=== PATIENT | female | born 1940 | race Caucasian/White ===

== ENCOUNTER 2016-06-18 17:17 | Observation (INO) | payer MEDICARE, OTHER ==
--- NOTE | 2016-06-18 17:44 | ER Document Report ---
ED Cardiac - General Time seen by provider: 17:35 Mode of Arrival: Wheelchair Information source: Patient, Relative - spouse TRAVEL OUTSIDE OF THE [place] IN LAST 30 DAYS: No - HPI Patient complains to provider of: Chest pain, Shortness of breath <KENYON ALLEN - Last Filed: 06/18/16 22:40> <DESI MOSELEY - Last Filed: 06/18/16 23:59> - General Stated Complaint: CHEST PAIN Notes: Patient is a 75 year old female presenting to the emergency department for chest pain, hematuria, and shortness of breath. Patient was brought back from waiting room quickly due to EKG abnormalities. Patient states these symptoms have been intermittent over the past 2 days. Patient states that she has felt a pressure in her chest and epigastric area that does not radiate. Patient states her pain was present upon arrival but it went away after being in the ED. Patient states her pain was a 3/5. Patient also has some nausea but denies any vomiting. Patient is on Coumadin; patient and patient's spouse state they were told that the patient may have had a previous AL. Patient's Coumadin level was elevated when checked by her PCP recently. Patient has a history of hypercholesterolemia, hypertension, and diabetes mellitus. Patient's brother had an AL today. Patient has no known allergies. (KENYON ALLEN) - Related Data Allergies/Adverse Reactions: No Known Allergies Allergy (Verified 07/04/15 20:48) Home Medications: Current Home Medications Allopurinol [Zyloprim 300 mg Tablet] 300 mg PO DAILY 06/18/16 [History] Rosuvastatin Calcium [Crestor 5 mg Tablet] 5 mg PO Q48HP PRN 06/18/16 [History] Ubidecarenone [Co Q-10] 50 mg PO DAILY 06/18/16 [History] Past Medical History - General Information source: Patient, Relative - spouse - Social History Smoking Status: Never Smoker Family History: None - Past Medical History Cardiac Medical History: Reports: Hx Heart Attack, Hx Hypercholesterolemia, Hx Hypertension Endocrine Medical History: Reports: Hx Diabetes Mellitus Type 2 <KENYON ALLEN - Last Filed: 06/18/16 22:40> Review of Systems - Review of Systems Constitutional: No symptoms reported EENT: No symptoms reported Cardiovascular: See HPI, Chest pain Respiratory: See HPI, Short of breath Gastrointestinal: See HPI, Nausea. denies: Vomiting Genitourinary: No symptoms reported Female Genitourinary: No symptoms reported Musculoskeletal: No symptoms reported Skin: No symptoms reported Hematologic/Lymphatic: No symptoms reported Neurological/Psychological: No symptoms reported -: Yes All other systems reviewed and negative <KENYON ALLEN - Last Filed: 06/18/16 22:40> Physical Exam <KENYON ALLEN - Last Filed: 06/18/16 22:40> <DESI MOSELEY - Last Filed: 06/18/16 23:59> - Vital signs Vitals: Resp Pulse Ox 19 98 06/18/16 17:51 06/18/16 17:51 - Notes Notes: GENERAL: Well-appearing, well-nourished and in no acute distress HEAD: Atraumatic, normocephalic EYES: Pupils equal round and reactive to light, extraocular movements intact, sclera anicteric, no conjunctival injection or discharge ENT: Nares patent, oropharynx clear without exudates. Moist mucous membranes. NECK: Normal range of motion, supple without lymphadenopathy, No JVD, No Carotid Bruits LUNGS: Breath sounds clear to auscultation bilaterally and equal. No wheezes rales or rhonchi HEART: Normal S1S2, Regular rate and rhythm without murmurs, Equal peripheral pulses ABDOMEN: Soft, non-tender, no suprapubic tenderness, No pulsatile mass BACK: No CVA tenderness. EXTREMITIES: Normal range of motion, no calf tenderness, Negative Homans, no edema NEUROLOGICAL: Cranial nerves grossly intact. Normal speech, Normal sensory and motor exams. No gross cerebellar abnormalities PSYCH: Normal mood, normal affect SKIN: Warm, Dry, no cyanosis, no splinter hemorrhages, Cap refill < 2 sec ( KENYON ALLEN) Course - Laboratory Result Diagrams: 06/18/16 17:35 06/18/16 17:35 - Consults Dr. Meléndez Time consulted: 22:40 <KENYON ALLEN - Last Filed: 06/18/16 22:40> - Laboratory Result Diagrams: 06/18/16 17:35 06/18/16 17:35 - Diagnostic Test Radiology reviewed: Image reviewed, Reports reviewed - NAD - EKG Interpretation by Me Rate: Normal Rhythm: NSR - There is significant T-wave abnormalities particularly in the anterior lateral distribution that seem more prominent than 07/05/2015 <DESI MOSELEY - Last Filed: 06/18/16 23:59> - Re-evaluation Re-evalutation: 06/18/16 17:44 Patient's EKG has changed or is at least more prominent than her prior EKG from almost a year ago. She does not have any active chest discomfort or symptoms except the hematuria so we at this point will proceed cautiously that this likely is cardiac in nature. With her hematuria to the degree and elevated INR as reported we will hold off on aspirin until she develops further symptoms or further evidence of cardiac ischemia. 06/18/16 19:40 Patient developed some repeat chest pressure and an EKG was performed really without any significant change 06/18/16 19:45 Patient's symptoms completely resolved with the nitroglycerin so we'll apply some nitroglycerin paste. She has a repeat troponin pending with the first one 0.016. We are awaiting a urine specimen. 06/18/16 23:11 Patient remains without any chest discomfort. Her local data modeling specialist is Dr. Mclaughlin and PCP Dr. Hernandez. P 86/118/66, 96% (PIPERDESI RODAS) - Vital Signs Vital signs: Temp Pulse Resp BP Pulse Ox 20 118/66 96 06/18/16 23:01 06/18/16 23:01 06/18/16 23:01 - Laboratory Laboratory results interpreted by me: 06/18/16 06/18/16 06/18/16 17:35 17:35 17:35 RDW 15.3 H Plt Count 72 L PT 42.4 H Creatinine 0.51 L Glucose 226 H Calcium 10.3 H AST 64 H Creatine Kinase 146 H Urine Protein Urine Glucose (UA) Urine Blood 06/18/16 19:50 RDW Plt Count PT Creatinine Glucose Calcium AST Creatine Kinase Urine Protein 100 H Urine Glucose (UA) 150 H Urine Blood LARGE H - Consults Dr. Meléndez Reason for consultation: 06/18/16 22:[address] Meléndez for consult and recommendations for patient. He will call back. (KENYON ALLEN) Discharge <KENYON ALLEN - Last Filed: 06/18/16 22:40> - Discharge Admitting Provider: Hospitalist - Dr. Meléndez Unit Admitted: Telemetry <DESI MOSELEY - Last Filed: 06/18/16 23:59> - Discharge Clinical Impression: Chest pain, Coumadin coagulopathy, Hematuria Condition: Fair Disposition: ADMITTED INPATIENT Scribe Documentation - Scribe Written by Scrroger:: Kenyon Allen 06/18/16 20:20 acting as scribe for :: Piper <KENYON ALLEN - Last Filed: 06/18/16 22:40>
[2016-06-18 17:59] LABS: ABSOLUTE EOSINOPHILS # (AUTO) 0.1 10^3/uL (0.0-0.6); ABSOLUTE LYMPHOCYTES (AUTO) 1.2 10^3/uL (0.5-4.7); ABSOLUTE MONOCYTES (AUTO) 0.6 10^3/uL (0.1-1.4); ABSOLUTE NEUT (AUTO) 5.3 10^3/uL (1.7-8.2); BASOPHILS % (AUTO) 0.5 % (0-2); EOSINOPHILS % (AUTO) 1.8 % (0-6); HEMATOCRIT 40.9 % (36.0-47.0); HEMOGLOBIN 13.5 g/dL (12.0-15.5); HGB HCT DIFFERENCE -0.4; LYMPHOCYTES % (AUTO) 16.7 % (13-45); MEAN CORPUSCULAR HEMOGLOBIN 30.7 pg (27.0-33.4); MEAN CORPUSCULAR VOLUME 93 fl (80-97); MONOCYTES % (AUTO) 7.7 % (3-13); RED BLOOD COUNT 4.39 10^6/uL (3.72-5.28); RED CELL DISTRIBUTION WIDTH 15.3 % (11.5-14.0); SEGMENTED NEUTROPHILS % (AUTO) 73.3 % (42-78); WHITE BLOOD COUNT 7.2 10^3/uL (4.0-10.5)
[2016-06-18 18:04] LABS: PROTHROMBIN TIME 42.4 SEC (11.4-15.4)
[2016-06-18 18:17] LABS: ALANINE AMINOTRANSFERASE 52 U/L (9-52); ALBUMIN 4.1 g/dL (3.5-5.0); ALKALINE PHOSPHATASE 63 U/L (38-126); ANION GAP 13 (5-19); ASPARTATE AMINO TRANSFERASE 64 U/L (14-36); BILIRUBIN,DIRECT 0.4 mg/dL (0.0-0.4); BILIRUBIN,TOTAL 0.7 mg/dL (0.2-1.3); BLOOD UREA NITROGEN 9 mg/dL (7-20); CALCIUM 10.3 mg/dL (8.4-10.2); CARBON DIOXIDE 27 mmol/L (22-30); CHLORIDE 101 mmol/L (98-107); CREATINE KINASE 146 U/L (30-135); CREATININE RESULT 0.51 mg/dL (0.52-1.25); GLUCOSE 226 mg/dL (75-110); POTASSIUM 3.9 mmol/L (3.6-5.0); SODIUM 140.7 mmol/L (137-145); TOTAL PROTEIN 7.4 g/dL (6.3-8.2)
--- NOTE | 2016-06-18 18:24 | EKG REPORT ---
SEVERITY:- ABNORMAL ECG - SINUS RHYTHM ABNORMAL T, CONSIDER ISCHEMIA,CLAY LATERAL LEADS : Confirmed by: Jack Nieves MD 18-Jun-2016 18:23:46
[2016-06-18 18:27] LABS: CREATINE KINASE MB 3.7 ng/mL (<4.55); TROPONIN I 0.016 ng/mL
[2016-06-18] MEDS ORDERED: NITROGLYCERIN 0.4 MG/TAB 25 TAB/BOTTLE ONE (18:49)
[2016-06-18] MEDS ORDERED: NITROGLYCERIN 2% OINTMENT 1 GM PACKET TP ONE (19:46)
[2016-06-18 20:49] LABS: APPEARANCE,URINE CLOUDY; BILIRUBIN,URINE NEGATIVE (NEGATIVE); GLUCOSE, URINE 150 mg/dL (NEGATIVE); KETONES,URINE NEGATIVE (NEGATIVE); LEUKOCYTE ESTERASE,URINE NEGATIVE (NEGATIVE); NITRITE,URINE NEGATIVE (NEGATIVE); PROTEIN,URINE 100 mg/dL (NEGATIVE); URINE SPECIFIC GRAVITY 1.018; UROBILINOGEN,URINE NEGATIVE mg/dL (<2.0)
[2016-06-19] MEDS ORDERED: ACETAMINOPHEN 325 MG TABLET PO PRN (00:02)
[2016-06-19] MEDS ORDERED: GLUCAGON,HUMAN RECOMB 1 MG INJ IM PRN (00:03)
[2016-06-19] MEDS ORDERED: DEXTROSE 40% GEL 15 GM TUBE PO PRN ×2 (00:03)
[2016-06-19] MEDS ORDERED: DEXTROSE 50%-WATER 25 GM/50 ML DISP.SYRIN IV PRN ×2 (00:03)
[2016-06-19 05:09] LABS: CHOLESTEROL 122.02 mg/dL (0-200); Direct HDL 34 mg/dL (>40); TRIGLYCERIDES 158 mg/dL (<150)
[2016-06-19 05:20] LABS: DIRECT LDL 55 mg/dL (<100)
[2016-06-19 05:24] LABS: VLDL CHOLESTEROL 31.6 mg/dL (10-31)
--- NOTE | 2016-06-19 05:36 | PDOC H&P ---
History of Present Illness Admission Date/PCP: 06/19/16 01:09 PCP Mary low Patient complains of: chest pain, hematuria History of Present Illness: EUNICE OAKES is a 75 year old occasion female with underlying type II diabetes mellitus, hypertension, hyperlipidemia, gouty arthritis, and suspected previous AK by nuclear stress study results approximately a month ago, who presents to the emergency room for evaluation of above complaints. Describes a 2 day history of intermittent lower substernal/epigastric pressure- like discomfort without radiation. Nothing in particular makes it worse. Has had prior such discomfort. Nausea but no vomiting. Mild shortness of breath. Nuclear stress study results as noted above. Patient states she was started on Coumadin 2 weeks ago, for uncertain reason. By her account, no history of pulmonary embolus or DVT, although she has undergone previous left lower extremity arterial stent implant. States her data transcriber started the Coumadin. Wanted to proceed with Eliquis, but the cost was simply too great. No recent long trip with prolonged inactivity, or unusual lower extremity swelling or tenderness. During the same 2 day time span noted above, she's developed hematuria. Stopped her Coumadin upon instruction from her data transcriber. Currently resting quietly, chest pain-free. Per nursing staff, patient continues to have hematuria. Patient has been discussed with emergency room physician who evaluated the patient. . Denies any known history of low platelets or elevated liver functions. Denies any underlying biliary disease. Laboratory results are listed in [facility] and are reviewed. X-ray summary results are listed below, with full report(s) reviewed. . EKG's reviewed. And compared to a prior tracing from July 04 of last year. Social history/personal habits: . 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 No use of alcohol tobacco or illicit drugs. Allergies/adverse reactions NKDA. Home medications Home medications initially autopopulated into [facility] may not accurately reflect patient's true medications, dosages, and/or frequencies. Unfortunately, patient uncertain of dosages/frequencies. REVIEW OF SYSTEMS: Constitutional: No fever or chills. Eyes: Wears glasses. ENT: No swallowing problems or complaints. No hearing problems or complaints. Pulmonary: See history and present illness. Cardiovascular: See history and present illness. Gastrointestinal: See history and present illness. Skin: No current complaints, including rashes. Hematologic: Easy bruising. Neurologic: No current complaints, including numbness or tingling. Musculoskeletal: Joint pain from arthritis. Psychiatric: No current complaints, including anxiety or depression. Endocrine: No current complaints, including polyuria. Genitourinary: See history and present illness. PHYSICAL EXAMINATION: 5 feet 10 inches tall. 70.3 kg. BMI 22 kg/m. Temperature is not recorded on the chart; skin feels normothermic. Pulse 77 and regular. Blood pressure 131/ 63. Respirations are 17 and unlabored. 96% saturation on room air. Skin is warm and dry. No grossly obvious evidence of rash in areas of skin examined. No subcutaneous nodules palpated. ENT: Hearing grossly normal to normal conversation. Tongue midline on protrusion pink and slightly tacky. Eyes: No scleral icterus. Pupils equal and reactive to light at 4 mm. [place] conjunctivae. Neck is supple and nontender to gentle active range of motion and palpation. Midline trachea. No palpable thyroid nodule mass enlargement or tenderness. Lymphatic: No palpable cervical or clavicular nodes. Neck and lymphatic exams limited by patient body habitus. Psychiatric: Reasonable insight into acute and chronic medical issues. Oriented to time location and why here. Lungs: Auscultation reveals clear and equal breath sounds bilaterally. No use of accessory respiratory muscles. Cardiovascular: Heart regular rate and rhythm, without gallop murmur or rub. No carotid or abdominal aortic bruits. No ankle or pedal edema. Faintly palpable dorsalis pedis pulses. Abdomen: soft, slightly, distended nontender with positive bowel sounds. Unable to adequately evaluate abdomen for masses or organomegaly due to distention. Compression of neither her epigastrium nor sternum reproduces her previously noted chest discomfort. Extremities: Feet are warm and dry. No calf tenderness to compression. No grossly obvious visual evidence of calf swelling. Gentle manipulation of lower extremities fails to reveal any obvious evidence of injury or instability to knees hips or ankles. Neurologic: Moves upper extremities grossly normally. Patellar reflexes absent. Absent Babinski. Light touch is intact at feet. Dorsiflexion and plantarflexion of feet 5 / 5 and symmetric. Past Medical History Cardiac Medical History: Reports: Myocardial Infarction, Hyperlipidema, Hypertension Denies: Congestive Heart Failure, DVT, Pulmonary Embolism Pulmonary Medical History: Denies: Asthma, Chronic Obstructive Pulmonary Disease (COPD) EENT Medical History: Reports: Eyes - Glasses Denies: Ears, Throat Neurological Medical History: Denies: Hemorrhagic CVA, Ischemic CVA, Seizures Endocrine Medical History: Reports: Diabetes Mellitus Type 2 Denies: Diabetes Mellitus Type 1, Hyperthyroidism, Hypothyroidism Renal/ Medical History: Reports: None Malignancy Medical History: Reports: Skin Cancer GI Medical History: Denies: Cirrhosis, Gastroesophageal Reflux Disease, Hepatitis, Peptic Ulcer Disease Musculoskeltal Medical History: Reports: Arthritis, Gout Psychiatric Medical History: Denies: Alcohol Dependency, Depression, General Anxiety Disorder, Substance Abuse, Tobacco Dependency Hematology: Reports: Other - Easy bruising Infectious Medical History: Denies: Hepatitis B, Hepatitis C Past Surgical History Past Surgical History: Reports: Orthopedic Surgery - Foot surgery, Vascular Surgery - Left lower extremity arterial stent implant. Social History Information Source: Patient, Emergency Med Personnel, [facility] Records Lives with: Spouse/Significant other Smoking Status: Never Smoker Frequency of Alcohol Use: None Hx Recreational Drug Use: No Drugs: None Hx Prescription Drug Abuse: No - Advance Directive Resuscitation Status: Full Code Surrogate healthcare decision maker:: Family History Family History: None, CVA Parental Family History Reviewed: Yes Children Family History Reviewed: Yes Sibling(s) Family History Reviewed.: Yes Medication/Allergy Home Medications: RX: Allopurinol [Zyloprim 300 mg Tablet] 300 mg PO DAILY 06/19/16 RX: Glimepiride [Amaryl] 2 mg PO BID 06/19/16 RX: Metformin HCl [Glucophage] 1,000 mg PO BID 06/19/16 RX: Metoprolol Tartrate [Lopressor 50 mg Tablet] 50 mg PO DAILY 06/19/16 RX: Rosuvastatin Calcium [Crestor 5 mg Tablet] 5 mg PO Q2D 06/19/16 RX: Allopurinol [Zyloprim 300 mg Tablet] 300 mg PO DAILY tablet 06/20/16 Allergies/Adverse Reactions: No Known Allergies Allergy (Verified 07/04/15 20:48) Physical Exam Vital Signs: Temp Pulse Resp BP Pulse Ox 75 19 121/61 95 06/19/16 03:45 06/19/16 03:01 06/19/16 03:01 06/19/16 03:01 Results Impressions: Chest X-Ray 06/18/16 17:43 IMPRESSION: NO ACUTE RADIOGRAPHIC FINDING IN THE CHEST. Assessment & Plan - Diagnosis (1) Chest pain Qualifiers: Chest pain type: unspecified Qualified Code(s): R07.9 - Chest pain, unspecified Is this a current diagnosis for this admission?: YesPlan: Patient will be placed in observation bed under chest pain protocol. Patient understands to notify staff should chest pain recur. Serial cardiac enzymes. Repeat EKG. lipid panel. I have strongly encouraged patient not to get out of bed without notifying staff , to avoid a fall with injury. Knee high SCDs for DVT prophylaxis. With supratherapeutic INR, no need for Lovenox or heparin. Impression and plans were discussed with patient, who concurs. Time spent in evaluation and management of patient: 64 minutes. (2) Hematuria Is this a current diagnosis for this admission?: YesPlan: Should clear with time as INR normalizes. (3) Supratherapeutic INR Is this a current diagnosis for this admission?: YesPlan: Coumadin obviously placed on hold. Repeat PT/INR. (4) Elevated LFTs Is this a current diagnosis for this admission?: YesPlan: Uncertain etiology. Repeat hepatic profile. (5) Thrombocytopenia Is this a current diagnosis for this admission?: YesPlan: Uncertain etiology. Repeat CBC. (6) CAD (coronary artery disease) Qualifiers: Coronary Disease-Associated Artery/Lesion type: [place]arrow artery [place] vs. transplanted heart: barrow heart Associated angina: without angina Qualified Code(s): I25.10 - Atherosclerotic heart disease of [place] coronary artery without angina pectoris Is this a current diagnosis for this admission?: Yes (7) Diabetes mellitus type 2 in obese Is this a current diagnosis for this admission?: YesPlan: Diabetic cardiac diet.Resume home medications as appropriate once these have been determined and reviewed. (8) HLD (hyperlipidemia) Qualifiers: Hyperlipidemia type: unspecified Qualified Code(s): E78.5 - Hyperlipidemia, unspecified Is this a current diagnosis for this admission?: YesPlan: Resume home medications as appropriate once these have been determined and reviewed. (9) HTN (hypertension) Qualifiers: Hypertension type: essential hypertension Qualified Code(s): I10 - Essential (primary) hypertension Is this a current diagnosis for this admission?: YesPlan: Resume home medications as appropriate once these have been determined and reviewed.
[2016-06-19] MEDS ORDERED: PHYTONADIONE 5 MG TABLET PO ONE (09:10)
[2016-06-19] MEDS ORDERED: ASPIRIN 81 MG TABLET, ENT COATED PO SCH (10:00)
[2016-06-19 10:22] LABS: HEMATOCRIT 37.6 % (36.0-47.0); HEMOGLOBIN 12.6 g/dL (12.0-15.5); HGB HCT DIFFERENCE 0.2; MEAN CORPUSCULAR HEMOGLOBIN 30.5 pg (27.0-33.4); MEAN CORPUSCULAR HGB CONC 33.4 g/dL (32.0-36.0); MEAN CORPUSCULAR VOLUME 92 fl (80-97); RED BLOOD COUNT 4.11 10^6/uL (3.72-5.28); RED CELL DISTRIBUTION WIDTH 14.9 % (11.5-14.0); WHITE BLOOD COUNT 5.7 10^3/uL (4.0-10.5)
--- NOTE | 2016-06-19 10:24 | EKG REPORT ---
SEVERITY:- ABNORMAL ECG - SINUS RHYTHM PROBABLE LVH WITH SECONDARY REPOL ABNRM CONSIDER EVOLUTIONARY CHANGES ANTERIOR MD, CLINICAL CORRELATION NEEDED. : Confirmed by: Jack Nieves MD 19-Jun-2016 10:23:04
[2016-06-19 10:28] LABS: PROTHROMBIN TIME 30.5 SEC (11.4-15.4)
[2016-06-19 10:40] LABS: ALANINE AMINOTRANSFERASE 44 U/L (9-52); ALBUMIN 3.7 g/dL (3.5-5.0); ALKALINE PHOSPHATASE 58 U/L (38-126); ASPARTATE AMINO TRANSFERASE 45 U/L (14-36); BILIRUBIN,DIRECT 0.4 mg/dL (0.0-0.4); BILIRUBIN,TOTAL 1.2 mg/dL (0.2-1.3); TOTAL PROTEIN 6.5 g/dL (6.3-8.2)
--- NOTE | 2016-06-19 11:43 | PDOC CONSULTATION ---
Consultation Consult Date: 06/19/16 Attending physician:: MING CISNEROS Consult reason:: Chest pain and urinary bleed History of Present Illness Admission Date/PCP: 06/19/16 05:07 Patient complains of: Chest pain History of Present Illness: EUNICE OAKES is a 75 year old occasion female with underlying type II diabetes mellitus, hypertension, hyperlipidemia, gouty arthritis, and suspected previous CT by nuclear stress study results approximately a month ago, who presents to the emergency room for evaluation of above complaints. Describes a 2 day history of intermittent lower substernal/epigastric pressure- like discomfort without radiation. Nothing in particular makes it worse. Has had prior such discomfort. Nausea but no vomiting. Mild shortness of breath. Nuclear stress study results as noted above. Patient states she was started on Coumadin 2 weeks ago, for uncertain reason. By her account, no history of pulmonary embolus or DVT, although she has undergone previous left lower extremity arterial stent implant. States her global marketing operations manager started the Coumadin. Wanted to proceed with Eliquis, but the cost was simply too great. No recent long trip with prolonged inactivity, or unusual lower extremity swelling or tenderness. During the same 2 day time spent, she's developed hematuria. Stopped her Coumadin upon instruction from her global marketing operations manager. Patient denies any exertional component to the chest pain. She is however noted to have abnormal EKG with T-wave inversions. Patient describes that she had a pharmacologic nuclear stress test. She claims that based on stress test results she was placed on Coumadin. I believe that she may have pharmacologic stress-induced atrial fibrillation, atrial fibrillation can be a complication of Lexiscan injection. Patient subsequently used a equipment monitor phototypesetting for approximately 2 weeks and no atrial fibrillation was noted. Patient denied prior heart catheterization, prior strokes or mini strokes but claims unsteadiness of gait at night. Patient describes history of stent placement in her lower extremity. Patient denied history of ulcers or esophageal or gastric bleed. Patient does describe history of snoring which was confirmed by her . She describes difficulty falling asleep, staying asleep, daytime fatigue and sleepiness. Past Medical History Cardiac Medical History: Reports: Myocardial Infarction, Hyperlipidema, Hypertension Denies: Congestive Heart Failure, DVT, Pulmonary Embolism Pulmonary Medical History: Denies: Asthma, Chronic Obstructive Pulmonary Disease (COPD) EENT Medical History: Reports: Eyes - Glasses, Other - Easy bruising Denies: Ears, Throat Neurological Medical History: Denies: Hemorrhagic CVA, Ischemic CVA, Seizures Endocrine Medical History: Reports: Diabetes Mellitus Type 2 Denies: Diabetes Mellitus Type 1, Hyperthyroidism, Hypothyroidism Renal/ Medical History: Reports: None Malignancy Medical History: Reports: Skin Cancer GI Medical History: Denies: Cirrhosis, Gastroesophageal Reflux Disease, Hepatitis, Peptic Ulcer Disease Musculoskeltal Medical History: Reports: Arthritis, Gout Psychiatric Medical History: Denies: Alcohol Dependency, Depression, General Anxiety Disorder, Substance Abuse, Tobacco Dependency Hematology: Reports: Other - Easy bruising Infectious Medical History: Denies: Hepatitis B, Hepatitis C Past Surgical History Past Surgical History: Reports: Orthopedic Surgery - Foot surgery, Vascular Surgery - Left lower extremity arterial stent implant. Social History Information Source: Patient Lives with: Spouse/Significant other Smoking Status: Never Smoker Frequency of Alcohol Use: None Hx Recreational Drug Use: No Drugs: None Hx Prescription Drug Abuse: No - Advance Directive Resuscitation Status: Full Code Surrogate healthcare decision maker:: Patient's insists surrogate decision-maker Family History Family History: None, CVA Parental Family History Reviewed: Yes Children Family History Reviewed: Yes Sibling(s) Family History Reviewed.: Yes - Negative for premature coronary artery disease or sudden cardiac in the family amongst first degree relatives. Medication/Allergy Home Medications: Aspirin [Aspirin 81 mg Chewable Tablet] 1 tab PO DAILY 07/04/15 Enalapril Maleate 1 tab PO BID 07/04/15 Glimepiride [Amaryl] 1 tab PO BID 07/04/15 Allopurinol [Zyloprim 300 mg Tablet] 300 mg PO DAILY 06/18/16 Rosuvastatin Calcium [Crestor 5 mg Tablet] 2.5 mg PO DAILY 06/18/16 Metformin HCl [Metformin HCl] 1 tab PO BID 06/19/16 Metoprolol Tartrate [Lopressor 50 mg Tablet] 50 mg PO Q12H 06/19/16 Allergies/Adverse Reactions: No Known Allergies Allergy (Verified 07/04/15 20:48) Review of Systems Review of Systems: Please see history of present illness and past medical history as wall. Constitutional: No fever or chills reported. Head : No recent chronic headaches, recent head injury. Eyes: No recent eye pain, diplopia, redness, discharge, acute visual changes. Ears: No recent chronic ear pain, acute hearing loss, ear discharge. Oral cavity: No recent ulcerations, bleeding, oral cavity discomfort. Neck: No recent acute neck pain reported. Hematologic: No recent easy bruising or bleeding or hematologic malignancy reported. Lymphatic: No recent lymphatic malignancy, chronic lymphadenopathy reported yet Cardiovascular system review: See history of present illness. Respiratory system review: No recent chronic cough, hemoptysis, blood clots in the lungs reported. Mild Shortness of breath on exertion Gastrointestinal system review: Negative for any recent acute or chronic abdominal pain, hematemesis, melena, recent change in bowel habits. History of intermittent epigastric discomfort. Genitourinary system review: History of recent hematuria but no flank pain, UTI etc. reported. Skin system review: Negative for any recent abnormal bruising, no rash, no pruritus reported. Neurologic: No prior history of strokes, mini strokes, seizure disorder. Psychologic: No history of major psychosis or major depression reported. Musculoskeletal: Minor aches and pains reported. No acute joint swelling reported. Endocrine: No recent polyuria, polydipsia, recent heat or cold intolerance. Physical Exam Vital Signs: Temp Pulse Resp BP Pulse Ox 97.6 F 76 17 117/86 H 99 06/19/16 08:00 06/19/16 08:00 06/19/16 08:00 06/19/16 08:00 06/19/16 08:00 Intake & Output 06/18/16 06/19/16 06/20/16 06:59 06:59 06:59 Intake Total 0 Balance 0 Weight 70.3 kg Exam: GENERAL: well-nourished and in no acute distress. Alert and oriented x3 HEAD: Atraumatic, normocephalic. EYES: Pupils equal round and reactive to light, extraocular movements intact, sclera anicteric, conjunctiva are normal. ENT: TMs normal, nares patent, oropharynx clear without exudates. Moist mucous membranes. No oral ulcerations or bleeding gums noted NECK: supple without lymphadenopathy. Trachea is central. No cervical or axillary lymphadenopathy noted. Carotids are 2+, JVD WNL LUNGS: Respiration seems nonlabored, no significant accessory muscle action noted. Breath sounds clear to auscultation bilaterally and equal noted. No wheezes rales or rhonchi noted. No significant dullness noted on percussion. CHEST: Palpation of the chest wall shows no significant chest wall tenderness. No other significant abnormalities noted. HEART: [employer] DIRECTOR OF EVENT MANAGEMENT, No PSH, 1/6 FRANSISCA aortic area, 1/6 tesfaye systolic murmur mitral area, no rubs, no gallops. ABDOMEN: Soft, no significant tenderness appreciated, normoactive bowel sounds. No guarding, no rebound. No rigidity noted . No masses appreciated. EXTREMITIES: Pedal pulses are 1-2+, no calf tenderness noted. No clubbing or cyanosis.trace to 1+ pedal edema noted NEUROLOGICAL: Focused neurological exam showed no significant neurologic deficit. Normal speech, no focal weakness appreciated. PSYCH: Normal mood, normal affect. Judgment and insight within normal limits. SKIN: No significant ecchymosis, rash, ulcerations or signs of pruritus noted. MUSCULOSKELETAL EXAM: No significant joint swelling noted. Results Laboratory Results: 06/19/16 10:09 06/19/16 06/19/16 10:09 10:09 WBC 5.7 RBC 4.11 Hgb 12.6 Hct 37.6 MCV 92 MCH 30.5 MCHC 33.4 RDW 14.9 H Plt Count 61 L Total Bilirubin 1.2 AST 45 H ALT 44 Alkaline Phosphatase 58 Total Protein 6.5 Albumin 3.7 06/19/16 10:09 Troponin I 0.017 EKG Comments: Sinus rhythm, T wave inversion noted in lateral chest leads consistent with ischemia Impressions: Chest X-Ray 06/18/16 17:43 IMPRESSION: NO ACUTE RADIOGRAPHIC FINDING IN THE CHEST. Abdomen Ultrasound 06/19/16 00:00 IMPRESSION: Cholelithiasis. Positive sonographic Cordoba's sign. Renal Ultrasound 06/19/16 00:00 IMPRESSION: NORMAL RENAL AND BLADDER ULTRASOUND. Assessment & Plan - Diagnosis (1) Chest pain Qualifiers: Chest pain type: unspecified Qualified Code(s): R07.9 - Chest pain, unspecified Is this a current diagnosis for this admission?: Yes (2) Hematuria Is this a current diagnosis for this admission?: Yes (3) Supratherapeutic INR Is this a current diagnosis for this admission?: Yes (4) CAD (coronary artery disease) Qualifiers: Coronary Disease-Associated Artery/Lesion type: false pass artery [place] vs. transplanted heart: false pass heart Associated angina: without angina Qualified Code(s): I25.10 - Atherosclerotic heart disease of false pass coronary artery without angina pectoris Is this a current diagnosis for this admission?: Yes (5) Diabetes mellitus type 2 in obese Is this a current diagnosis for this admission?: Yes (6) HLD (hyperlipidemia) Qualifiers: Hyperlipidemia type: unspecified Qualified Code(s): E78.5 - Hyperlipidemia, unspecified Is this a current diagnosis for this admission?: Yes (7) HTN (hypertension) Qualifiers: Hypertension type: essential hypertension Qualified Code(s): I10 - Essential (primary) hypertension Is this a current diagnosis for this admission?: Yes - Notes Notes: Chest pain: Currently chest pain-free. Patient does have some EKG changes but need to compare with prior EKGs. At this point will optimize therapy for underlying CAD. Recommend starting Plavix once bleeding stops. Continue aspirin. Have started patient on beta refugio. Once blood pressure improves will recommend adding olga inhibitor or ARB. Patient placed on statins. Hematuria: Possible underlying UTI. Recommend antibiotic therapy. Supratherapeutic INR: Currently reversed. Exact reason for starting Coumadin is not clear but could have been paroxysmal A. fib. Whether this was precipitated by stress test is not clear or whether this was spontaneously observed. We will need to review records and reassess anticoagulation in this patient. Coronary artery disease: We will recommend Ranexa therapy. Will restart this while patient is in the hospital. Diabetes:Diabetes: Recommend good control of blood sugar. However should avoid any hypoglycemia. Patient being expertly managed by primary care MAscencion. Hyperlipidemia: LDL goal is less than 70. Recommend statin therapy at least intermediate or high dose, of high potency status. Periodic lipid panel and liver panel is indicated. Patient to report any significant muscle discomfort or other side effects. Hypertension: Reasonably well controlled. Blood pressure goal in this patient is 135/85 or less. Sleep disorder: Patient describes history of snoring, marked increased fatigue and sleepiness during the day. Discussed that she might consider a sleep study as an outpatient. This is especially in view of atrial fibrillation, paroxysmal. - Time Time Spent: 30 to 50 Minutes - CODE STATUS was discussed, patient remains full code. Surrogate decision-maker unchanged. Multiple medical problems were addressed.More than 50% of the time spent coordinating care, discussing management plans with involved caregivers. Management plans discussed with involved personnels. Medical decision making was of moderate complexity. Medications reviewed and adjusted accordingly: Yes
[2016-06-19] MEDS: ALLOPURINOL 300 MG TABLET PO SCH (11:57)
[2016-06-19] MEDS ORDERED: METOPROLOL SUCCINATE 25 MG TAB.SR.24H PO SCH (12:00)
[2016-06-19] MEDS: INSULIN LISPRO 100 UNIT/ML 3 ML VIAL SUBCUT PRN ×3 (12:35→22:06)
[2016-06-19] MEDS: LANSOPRAZOLE 30 MG TAB.RAP.DR PO SCH (16:50)
--- NOTE | 2016-06-19 17:39 | PDOC PROGRESS REPORT ---
Subjective Progress Note for:: 06/19/16 Subjective:: Reason for visit: Follow-up hematuria, cytopenia, iatrogenic coagulopathy, chest pain Hospital course: Per H&P "EUNICE OAKES is a 75 year old occasion female with underlying type II diabetes mellitus, hypertension, hyperlipidemia, gouty arthritis, and suspected previous RI by nuclear stress study results approximately a month ago, who presents to the emergency room for evaluation of above complaints. Describes a 2 day history of intermittent lower substernal/ epigastric pressure-like discomfort without radiation. Nothing in particular makes it worse. Has had prior such discomfort. Nausea but no vomiting. Mild shortness of breath. Nuclear stress study results as noted above. Patient states she was started on Coumadin 2 weeks ago, for uncertain reason. By her account, no history of pulmonary embolus or DVT (or afib or other dysrhythmia), although she has undergone previous left lower extremity arterial stent implant. States her automobile contract clerk started the Coumadin. Wanted to proceed with Eliquis, but the cost was simply too great. No recent long trip with prolonged inactivity, or unusual lower extremity swelling or tenderness. During the same 2 day time spent, she's developed hematuria. Stopped her Coumadin upon instruction from her automobile contract clerk. Currently resting quietly, chest pain-free. Per nursing staff, patient continues to have hematuria." She has no recollection of being told previously that her liver function studies were slightly abnormal or that her platelets were slightly low. She denies alcohol use and any dose or form. She does report that her brother has an unknown type of hepatitis that he was told his prescription induced. He is currently hospitalized in [place] with an acute RI. EKG in the ED shows T- wave inversions in lead 1, aVL, V3 through 6 and when compared to prior EKG looks slightly more pronounced, Otherwise no significant changes. I ordered a renal ultrasound that shows no anatomic abnormality of the system including no bladder mass. Right upper quadrant ultrasound likewise shows normal liver echogenicity and texture but did show gallbladder sludge and stones without pericholecystic fluid or common bile duct dilatation however she had pain on palpation in the right upper quadrant consistent with a positive Cordoba sign. Subjective: Prior to the ultrasound she reported resolution of her chest pain. She also notes her urine has cleared, she seen no more blood or clots in her urine. ROS: per HPI plus a total of 10 systems reviewed, pertinent positives and negatives noted above, remaining systems negative. Physical Exam Vital Signs: Temp Pulse Resp BP Pulse Ox 97.3 F 70 19 125/72 100 06/19/16 16:00 06/19/16 16:00 06/19/16 16:00 06/19/16 16:00 06/19/16 16:00 Intake & Output 06/18/16 06/19/16 06/20/16 06:59 06:59 06:59 Intake Total 0 757 Output Total 750 Balance 0 7 Weight 70.3 kg EXAM GENERAL: NAD; well developed, well nourished; no obese; alert and oriented to person, place, time, situation HEENT: normocephalic, atraumatic; no conjunctival injection, no scleral icterus ; oral mucosa moist; RESPIRATORY: no accessory muscle use, no increased WOB, good air entry bilaterally; no wheezes, rales, rhonchi; no inspiratory crackles CARDIO: no JVD; RRR; no systolic murmur; no tachycardia GI: soft; nondistended; normal bowel sounds; no hepato spleno megaly; no rebound, rigidity, guarding; mild upper abdominal tenderness on deep palpation VASCULAR: no carotid bruit; no abdominal bruit; no pallor; 2+ radial, DP pulse ; normal capillary refill EXTREMITIES: no calf tender; no palpable cords in calf; no clubbing, cyanosis , pedal edema PSYCH: normal affect, normal mood SKIN: warm; moist; no petechiae; no telengectasias; no jaundice; no rash Results Laboratory Results: 06/19/16 10:09 06/19/16 06/19/16 10:09 10:09 WBC 5.7 RBC 4.11 Hgb 12.6 Hct 37.6 MCV 92 MCH 30.5 MCHC 33.4 RDW 14.9 H Plt Count 61 L Total Bilirubin 1.2 AST 45 H ALT 44 Alkaline Phosphatase 58 Total Protein 6.5 Albumin 3.7 06/19/16 10:09 Troponin I 0.017 Impressions: Chest X-Ray 06/18/16 17:43 IMPRESSION: NO ACUTE RADIOGRAPHIC FINDING IN THE CHEST. Abdomen Ultrasound 06/19/16 00:00 IMPRESSION: Cholelithiasis. Positive sonographic Cordoba's sign. Renal Ultrasound 06/19/16 00:00 IMPRESSION: NORMAL RENAL AND BLADDER ULTRASOUND. Assessment & Plan - Diagnosis (1) Chest pain Qualifiers: Chest pain type: unspecified Qualified Code(s): R07.9 - Chest pain, unspecified Is this a current diagnosis for this admission?: YesPlan: Unclear etiology. The patient reports an abnormal stress test but was told that there was "no blockage in her coronary arteries" but she cannot remember the specific abnormality found. He does not understand why she was started on Coumadin therapy but tells me it was not because of atrial fibrillation or cardiac arrhythmia. Interestingly, ultrasound imaging revealed a possible gallbladder source. She does not have a leukocytosis or fever and only has mild nausea with no vomiting , her LFTs are only marginally elevated and even less so than previous and no elevation of her bilirubin. Nevertheless this may explain her chest pain as well as any other cause. ck HIDA in the morning and consult surgery if abnormal. appreciate cardiology's input; we are really at a disadvantage until we can get her stress test results. her TpI is trending down and never outside the normal range. (2) Hematuria Is this a current diagnosis for this admission?: YesPlan: seems to have subsided. I gave VitK and INR is trending down though not quite normal as yet. continue to monitorl (3) Supratherapeutic INR Is this a current diagnosis for this admission?: Yes (4) Elevated LFTs Is this a current diagnosis for this admission?: YesPlan: unclear etiology; see above discussion (5) Thrombocytopenia Is this a current diagnosis for this admission?: YesPlan: unclear etiology. continue to trend and hold antiplt Tx at this time. (6) Diabetes mellitus type 2 in obese Is this a current diagnosis for this admission?: Yes (7) HLD (hyperlipidemia) Qualifiers: Hyperlipidemia type: unspecified Qualified Code(s): E78.5 - Hyperlipidemia, unspecified Is this a current diagnosis for this admission?: YesPlan: predominantly triglycerides but hold statin and fibrate Tx until we can sort out her liver abnl's. (8) HTN (hypertension) Qualifiers: Hypertension type: essential hypertension Qualified Code(s): I10 - Essential (primary) hypertension Is this a current diagnosis for this admission?: Yes - Time Time Spent with patient: 35 or more minutes Medications reviewed and adjusted accordingly: Yes Anticipated discharge: Home Within: within 48 hours
[2016-06-19] MEDS ORDERED: ATORVASTATIN CALCIUM 20 MG TABLET PO SCH (22:00)
--- NOTE | 2016-06-19 22:20 | EKG REPORT ---
SEVERITY:- ABNORMAL ECG - SINUS RHYTHM ABNORMAL T, CONSIDER ISCHEMIA ,CLAY LATERAL LEADS : Confirmed by: Jack Nieves MD 19-Jun-2016 17:31:20
[2016-06-20 05:33] LABS: PROTHROMBIN TIME 17.2 SEC (11.4-15.4)
[2016-06-20 05:43] LABS: ALANINE AMINOTRANSFERASE 42 U/L (9-52); ALBUMIN 3.4 g/dL (3.5-5.0); ALKALINE PHOSPHATASE 53 U/L (38-126); ANION GAP 11 (5-19); ASPARTATE AMINO TRANSFERASE 42 U/L (14-36); BLOOD UREA NITROGEN 11 mg/dL (7-20); CARBON DIOXIDE 24 mmol/L (22-30); CHLORIDE 106 mmol/L (98-107); CREATININE RESULT 0.47 mg/dL (0.52-1.25); GLUCOSE 177 mg/dL (75-110); POTASSIUM 4.1 mmol/L (3.6-5.0); SODIUM 140.6 mmol/L (137-145)
[2016-06-20 05:44] LABS: BILIRUBIN,DIRECT 0.4 mg/dL (0.0-0.4); MAGNESIUM 1.3 mg/dL (1.6-2.3); PHOSPHORUS 3.3 mg/dL (2.5-4.5); TOTAL PROTEIN 6.4 g/dL (6.3-8.2)
[2016-06-20] MEDS: LANSOPRAZOLE 30 MG TAB.RAP.DR PO SCH (06:35)
[2016-06-20 07:39] LABS: ABSOLUTE EOSINOPHILS # (AUTO) 0.2 10^3/uL (0.0-0.6); ABSOLUTE LYMPHOCYTES (AUTO) 1.4 10^3/uL (0.5-4.7); ABSOLUTE MONOCYTES (AUTO) 0.5 10^3/uL (0.1-1.4); BASOPHILS % (AUTO) 0.4 % (0-2); EOSINOPHILS % (AUTO) 3.4 % (0-6); HEMATOCRIT 37.8 % (36.0-47.0); HEMOGLOBIN 12.5 g/dL (12.0-15.5); HGB HCT DIFFERENCE -0.3; LYMPHOCYTES % (AUTO) 26.6 % (13-45); MEAN CORPUSCULAR HEMOGLOBIN 30.5 pg (27.0-33.4); MEAN CORPUSCULAR HGB CONC 33.1 g/dL (32.0-36.0); MEAN CORPUSCULAR VOLUME 92 fl (80-97); MONOCYTES % (AUTO) 10.3 % (3-13); RED CELL DISTRIBUTION WIDTH 15.3 % (11.5-14.0); SEGMENTED NEUTROPHILS % (AUTO) 59.3 % (42-78); WHITE BLOOD COUNT 5.1 10^3/uL (4.0-10.5)
[2016-06-20] MEDS: INSULIN LISPRO 100 UNIT/ML 3 ML VIAL SUBCUT PRN (08:09)
[2016-06-20] MEDS: ALLOPURINOL 300 MG TABLET PO SCH (09:30)
[2016-06-20] MEDS ORDERED: ISOSORBIDE MONONITRATE 30 MG TAB.ER.24H PO SCH (10:00)
[2016-06-20 10:35] VITALS: BP 143/62
--- NOTE | 2016-06-20 12:30 | PDOC PROGRESS REPORT ---
Subjective Progress Note for:: 06/20/16 Subjective:: Patient seems to be doing better with gradual improvement. Pt is denying any chest arm or neck discomfort. Patient denying any PND, orthopnea. Patient denied any sustained palpitations, dizziness, syncope, near syncope. Patient denying any fever chills. Patient denying any other significant discomfort. Patient is maintaining sinus rhythm. No further urinary bleed noted. Review of systems: Rest review of systems negative. Medications: Medications have been reviewed. Physical Exam Vital Signs: Temp Pulse Resp BP Pulse Ox 97.9 F 105 H 18 143/62 H 99 06/20/16 10:23 06/20/16 10:23 06/20/16 10:23 06/20/16 10:23 06/20/16 10:23 Intake & Output 06/19/16 06/20/16 06/21/16 06:59 06:59 06:59 Intake Total 0 977 Output Total 1170 Balance 0 -193 Weight 70.3 kg Exam: GENERAL: well-nourished and in no acute distress. Alert and oriented x3 HEAD: Atraumatic, normocephalic. EYES: Pupils equal round and reactive to light, extraocular movements intact, sclera anicteric, conjunctiva are normal. ENT: TMs normal, nares patent, oropharynx clear without exudates. Moist mucous membranes. No oral ulcerations or bleeding gums noted NECK: supple without lymphadenopathy. Trachea is central. No cervical or axillary lymphadenopathy noted. Carotids are 2+, JVD WNL LUNGS: Respiration seems nonlabored, no significant accessory muscle action noted. Breath sounds clear to auscultation bilaterally and equal noted. No wheezes rales or rhonchi noted. No significant dullness noted on percussion. CHEST: Palpation of the chest wall shows no significant chest wall tenderness. No other significant abnormalities noted. HEART: [place] [employer], No PSH, 1/6 FRANSISCA aortic area, 1/6 tesfaye systolic murmur mitral area, no rubs, no gallops. ABDOMEN: Soft, no significant tenderness appreciated, normoactive bowel sounds. No guarding, no rebound. No rigidity noted . No masses appreciated. EXTREMITIES: Pedal pulses are 1-2+, no calf tenderness noted. No clubbing or cyanosis.trace to 1+ pedal edema noted NEUROLOGICAL: Focused neurological exam showed no significant neurologic deficit. Normal speech, no focal weakness appreciated. PSYCH: Normal mood, normal affect. Judgment and insight within normal limits. SKIN: No significant ecchymosis, rash, ulcerations or signs of pruritus noted. MUSCULOSKELETAL EXAM: No significant joint swelling noted. Results Laboratory Results: 06/20/16 06:27 06/20/16 04:59 06/20/16 06/20/16 06/20/16 04:59 04:59 04:59 WBC Cancelled RBC Cancelled Hgb Cancelled Hct Cancelled MCV Cancelled MCH Cancelled MCHC Cancelled RDW Cancelled Plt Count Cancelled Seg Neutrophils % Cancelled Lymphocytes % Cancelled Monocytes % Cancelled Eosinophils % Cancelled Basophils % Cancelled Absolute Neutrophils Cancelled Absolute Lymphocytes Cancelled Absolute Monocytes Cancelled Absolute Eosinophils Cancelled Absolute Basophils Cancelled Sodium 140.6 Potassium 4.1 Chloride 106 Carbon Dioxide 24 Anion Gap 11 BUN 11 Creatinine 0.47 L Est GFR ( Amer) > 60 Est GFR (Non-Af Amer) > 60 Glucose 177 H Lactic Acid 1.0 Calcium 10.0 Phosphorus 3.3 Magnesium 1.3 L Total Bilirubin 1.0 AST 42 H ALT 42 Alkaline Phosphatase 53 Ammonia Total Protein 6.4 Albumin 3.4 L 06/20/16 06/20/16 04:59 06:27 WBC 5.1 RBC 4.10 Hgb 12.5 Hct 37.8 MCV 92 MCH 30.5 MCHC 33.1 RDW 15.3 H Plt Count 53 L Seg Neutrophils % 59.3 Lymphocytes % 26.6 Monocytes % 10.3 Eosinophils % 3.4 Basophils % 0.4 Absolute Neutrophils 3.0 Absolute Lymphocytes 1.4 Absolute Monocytes 0.5 Absolute Eosinophils 0.2 Absolute Basophils 0.0 Sodium Potassium Chloride Carbon Dioxide Anion Gap BUN Creatinine Est GFR ( Amer) Est GFR (Non-Af Amer) Glucose Lactic Acid Calcium Phosphorus Magnesium Total Bilirubin AST ALT Alkaline Phosphatase Ammonia 18.0 Total Protein Albumin 06/19/16 06/20/16 10:09 04:59 Troponin I 0.017 0.023 Impressions: Chest X-Ray 06/18/16 17:43 IMPRESSION: NO ACUTE RADIOGRAPHIC FINDING IN THE CHEST. Abdomen Ultrasound 06/19/16 00:00 IMPRESSION: Cholelithiasis. Positive sonographic Cordoba's sign. Renal Ultrasound 06/19/16 00:00 IMPRESSION: NORMAL RENAL AND BLADDER ULTRASOUND. Assessment & Plan - Diagnosis (1) Chest pain Qualifiers: Chest pain type: unspecified Qualified Code(s): R07.9 - Chest pain, unspecified Is this a current diagnosis for this admission?: Yes (2) Hematuria Is this a current diagnosis for this admission?: Yes (3) Supratherapeutic INR Is this a current diagnosis for this admission?: Yes (4) CAD (coronary artery disease) Qualifiers: Coronary Disease-Associated Artery/Lesion type: [place] artery [place] vs. transplanted heart: [place] heart Associated angina: without angina Qualified Code(s): I25.10 - Atherosclerotic heart disease of [place] coronary artery without angina pectoris Is this a current diagnosis for this admission?: Yes (5) Diabetes mellitus type 2 in obese Is this a current diagnosis for this admission?: Yes (6) HLD (hyperlipidemia) Qualifiers: Hyperlipidemia type: unspecified Qualified Code(s): E78.5 - Hyperlipidemia, unspecified Is this a current diagnosis for this admission?: Yes (7) HTN (hypertension) Qualifiers: Hypertension type: essential hypertension Qualified Code(s): I10 - Essential (primary) hypertension Is this a current diagnosis for this admission?: Yes - Notes Notes: Chest pain: Resolved. Patient previous cardiac evaluation will be reviewed. Patient did tell me that she had a stress test recently. If there is recurrence of chest pain, may need to consider heart catheterization. Hematuria: Resolved. Supratherapeutic INR: Resolved. Coronary artery disease: Symptomatically stable. Diabetes: Recommend good control of blood sugar. However should avoid any hypoglycemia. Patient being expertly managed by primary care M.D. Hyperlipidemia: LDL goal is less than 70. Recommend statin therapy at least intermediate or high dose, of high potency status. Periodic lipid panel and liver panel is indicated. Patient to report any significant muscle discomfort or other side effects. Hypertension: Reasonably well controlled. Blood pressure goal in this patient is 135/85 or less. This was discussed with the patient. Currently blood pressure under reasonable control. Better medication for this patient are YESI inhibitor/ARB/beta refugio etc. discussed side effects of uncontrolled hypertension and also severe hypotension. - Time Time with patient: 15-25 minutes - CODE STATUS was discussed, patient remains full code. Surrogate decision-maker unchanged. Multiple medical problems were addressed.More than 50% of the time spent coordinating care, discussing management plans with involved caregivers. Management plans discussed with involved personnels. Medical decision making was of moderate complexity. And is being discharged today. We will be happy to follow this patient if she desires. Medications reviewed and adjusted accordingly: Yes
--- NOTE | 2016-06-20 15:00 | PDOC DISCHARGE SUMMARY ---
General - Admit/Disc Date/PCP Admission Date/Primary Care Provider: 06/19/16 05:07 Discharge Date: 06/20/16 - Discharge Diagnosis (1) Chest pain Is this a current diagnosis for this admission?: YesSummary: Resolved within hours of admission. No laboratory or EKG evidence of cardiac ischemia. Patient is to follow-up with her primary animal ecologist this week for further risk stratification and evaluation. (2) Hematuria Is this a current diagnosis for this admission?: YesSummary: Likely related to iatrogenic coagulopathy. Coumadin discontinued and reversed with normal INR at discharge. If her hematuria persists, she is to report to her PCP for outpatient referral to urology for cystoscopy and further evaluation. We do not have inpatient urology available to us at this time. Furthermore, her hemoglobin has not dropped precipitously. Reasons for the use of Coumadin or not entirely clear, she is to follow up with her primary care provider and the animal ecologist who prescribed it for clarification. She is to remain off all anticoagulation and antiplatelet therapy for 30 days or until resolution of the hematuria and urology evaluation. (3) Supratherapeutic INR Is this a current diagnosis for this admission?: Yes (4) Elevated LFTs Is this a current diagnosis for this admission?: YesSummary: Very mild. No etiology found. Abdominal ultrasound shows no anatomic abnormalities. Follow-up with her PCP for repeat testing and if necessary referral to professor of nursing for further evaluation. A hepatitis A, B, and C screen was sent but still pending at the time of this dictation. (5) Thrombocytopenia Is this a current diagnosis for this admission?: YesSummary: Chronic without clear etiology. Follow up with her PCP, may need either hepatology or hematology referral for further investigation. I recommend avoiding antiplatelet therapy as a result. (6) Diabetes mellitus type 2 in obese Is this a current diagnosis for this admission?: Yes (7) HLD (hyperlipidemia) Is this a current diagnosis for this admission?: Yes (8) HTN (hypertension) Is this a current diagnosis for this admission?: Yes - Additional Information Resuscitation Status: Full Code Discharge Diet: Cardiac - low fat Discharge Activity: Activity As Tolerated Home Medications: Allopurinol [Zyloprim 300 mg Tablet] 300 mg PO DAILY 06/19/16 Glimepiride [Amaryl] 2 mg PO BID 06/19/16 Metformin HCl [Glucophage] 1,000 mg PO BID 06/19/16 Metoprolol Tartrate [Lopressor 50 mg Tablet] 50 mg PO DAILY 06/19/16 Rosuvastatin Calcium [Crestor 5 mg Tablet] 5 mg PO Q2D 06/19/16 Allopurinol [Zyloprim 300 mg Tablet] 300 mg PO DAILY tablet 06/20/16 History of Present Illness Patient complains of: Hematuria History of Present Illness: EUNICE OAKES is a 75 year old female with underlying type II diabetes mellitus, hypertension, hyperlipidemia, gouty arthritis, and suspected previous MA by nuclear stress study results approximately a month ago, who presents to the emergency room for evaluation of above complaints. Describes a 2 day history of intermittent lower substernal/ epigastric pressure-like discomfort without radiation. Nothing in particular makes it worse. Has had prior such discomfort. Nausea but no vomiting. Mild shortness of breath. Hospital Course Hospital Course: Nuclear stress study results as noted above. Patient states she was started on Coumadin 2 weeks ago, for uncertain reason. By her account, no history of pulmonary embolus or DVT (or afib or other dysrhythmia), although she has undergone previous left lower extremity arterial stent implant. States her animal ecologist started the Coumadin. Wanted to proceed with Eliquis, but the cost was simply too great. No recent long trip with prolonged inactivity, or unusual lower extremity swelling or tenderness. During the same 2 day time spent, she's developed hematuria. Stopped her Coumadin upon instruction from her animal ecologist. Currently resting quietly, chest pain-free. Per nursing staff, patient continues to have hematuria." She has no recollection of being told previously that her liver function studies were slightly abnormal or that her platelets were slightly low. She denies alcohol use and any dose or form. She does report that her brother has an unknown type of hepatitis that he was told his prescription induced. He is currently hospitalized in [place] with an acute MA. EKG in the ED shows T- wave inversions in lead 1, aVL, V3 through 6 and when compared to prior EKG looks slightly more pronounced, Otherwise no significant changes. Cardiology consulted but there was no clear evidence of ongoing cardiac ischemia as her cardiac enzymes and EKGs were nondiagnostic for same. He is recommending follow -up with her primary animal ecologist for further investigation is needed. I ordered a renal ultrasound that shows no anatomic abnormality of the system including no bladder mass. Right upper quadrant ultrasound likewise shows normal liver echogenicity and texture but did show gallbladder sludge and stones without pericholecystic fluid or common bile duct dilatation however she had pain on palpation in the right upper quadrant consistent with a positive Cordoba sign. Her symptoms are episodic and she has no clinical signs or symptoms of active inflammatory or infectious biliary disease. I offered to perform HIDA scan but cannot do so until Tuesday and she states she feels well enough that she would like to go home and follow up with her PCP before deciding how to proceed. She was counseled on signs and symptoms that should prompt immediate return to the emergency department for further evaluation including worsening hematuria, high fevers or chills, intractable nausea or vomiting or diarrhea, intractable chest pain and classic coronary syndrome symptoms and she states clear understanding and willingness to comply. She expresses no concerns about discharge home today Physical Exam Vital Signs: Temp Pulse Resp BP Pulse Ox 97.9 F 105 H 18 143/62 H 99 06/20/16 10:23 06/20/16 10:23 06/20/16 10:23 06/20/16 10:23 06/20/16 10:23 Intake & Output 06/19/16 06/20/16 06/21/16 06:59 06:59 06:59 Intake Total 0 977 Output Total 1170 Balance 0 -193 Weight 70.3 kg EXAM GENERAL: NAD; well developed, well nourished; no obese; alert and oriented to person, place, time, situation HEENT: normocephalic, atraumatic; no conjunctival injection, no scleral icterus ; oral mucosa moist; RESPIRATORY: no accessory muscle use, no increased WOB, good air entry bilaterally; no wheezes, rales, rhonchi; no inspiratory crackles CARDIO: no JVD; RRR; no systolic murmur; no tachycardia GI: soft; nondistended; normal bowel sounds; no hepato spleno megaly; no rebound, rigidity, guarding; mild upper abdominal tenderness on deep palpation VASCULAR: no carotid bruit; no abdominal bruit; no pallor; 2+ radial, DP pulse ; normal capillary refill EXTREMITIES: no calf tender; no palpable cords in calf; no clubbing, cyanosis , pedal edema PSYCH: normal affect, normal mood SKIN: warm; moist; no petechiae; no telengectasias; no jaundice; no rash Results Laboratory Results: 06/20/16 06:27 06/20/16 04:59 06/20/16 06/20/16 06/20/16 04:59 04:59 04:59 WBC Cancelled RBC Cancelled Hgb Cancelled Hct Cancelled MCV Cancelled MCH Cancelled MCHC Cancelled RDW Cancelled Plt Count Cancelled Seg Neutrophils % Cancelled Lymphocytes % Cancelled Monocytes % Cancelled Eosinophils % Cancelled Basophils % Cancelled Absolute Neutrophils Cancelled Absolute Lymphocytes Cancelled Absolute Monocytes Cancelled Absolute Eosinophils Cancelled Absolute Basophils Cancelled Sodium 140.6 Potassium 4.1 Chloride 106 Carbon Dioxide 24 Anion Gap 11 BUN 11 Creatinine 0.47 L Est GFR ( Amer) > 60 Est GFR (Non-Af Amer) > 60 Glucose 177 H Lactic Acid 1.0 Calcium 10.0 Phosphorus 3.3 Magnesium 1.3 L Total Bilirubin 1.0 AST 42 H ALT 42 Alkaline Phosphatase 53 Ammonia Total Protein 6.4 Albumin 3.4 L 06/20/16 06/20/16 04:59 06:27 WBC 5.1 RBC 4.10 Hgb 12.5 Hct 37.8 MCV 92 MCH 30.5 MCHC 33.1 RDW 15.3 H Plt Count 53 L Seg Neutrophils % 59.3 Lymphocytes % 26.6 Monocytes % 10.3 Eosinophils % 3.4 Basophils % 0.4 Absolute Neutrophils 3.0 Absolute Lymphocytes 1.4 Absolute Monocytes 0.5 Absolute Eosinophils 0.2 Absolute Basophils 0.0 Sodium Potassium Chloride Carbon Dioxide Anion Gap BUN Creatinine Est GFR ( Amer) Est GFR (Non-Af Amer) Glucose Lactic Acid Calcium Phosphorus Magnesium Total Bilirubin AST ALT Alkaline Phosphatase Ammonia 18.0 Total Protein Albumin 06/19/16 06/20/16 10:09 04:59 Troponin I 0.017 0.023 Impressions: Chest X-Ray 06/18/16 17:43 IMPRESSION: NO ACUTE RADIOGRAPHIC FINDING IN THE CHEST. Abdomen Ultrasound 06/19/16 00:00 IMPRESSION: Cholelithiasis. Positive sonographic Cordoba's sign. Renal Ultrasound 06/19/16 00:00 IMPRESSION: NORMAL RENAL AND BLADDER ULTRASOUND. Qualifiers PATEINT BEING DISCHARGED WITH ANY OF THE FOLLOWING DIAGNOSIS?: No VTE patient discharged on overlapping Therapy?: No Reason(s) for not prescribing Overlap Therapy:: Not indicated Plan Time Spent: Greater than 30 Minutes
== END 2016-06-20 11:02 | disposition home or self-care (01) ==
LOC: ER 17:17 → EH 06-19 01:09 → UNDOADMIN 06-19 01:09 → EH 06-19 03:30 → 5 06-19 03:30 → EH 06-19 05:07 → INTOOBSV 06-19 05:07
PROVIDERS: ADMIT Family Medicine; ATTEND Family Medicine
DX: R07.9 Chest pain, unspecified (principal); R31.9 Hematuria, unspecified; Z79.01 Long term (current) use of anticoagulants; R79.89 Other specified abnormal findings of blood chemistry; D69.6 Thrombocytopenia, unspecified; E11.9 Type 2 diabetes mellitus without complications; E78.5 Hyperlipidemia, unspecified; I10 Essential (primary) hypertension; Z79.84 Long term (current) use of oral hypoglycemic drugs; I25.2 Old myocardial infarction; I25.10 Atherosclerotic heart disease of native coronary artery without angina pectoris; R79.1 Abnormal coagulation profile
CPT/HCPCS: 93005 ×2; 99285; 36415 ×3; 82553; 82962 ×2; 82140; 82550; 83605; 83735; 84100; 85025 ×2; 85027; 85610 ×3; 80076; 80053 ×2; 81001; 84484 ×3; 80061; 80074; 71010; 76770; 76705; 93976; 93010 ×2; G0378 ×2; A9270 ×9; J3490 ×2; J1815

== ENCOUNTER 2020-03-30 12:08 | Inpatient (IN) | payer MEDICARE, OTHER ==
[2020-03-30 12:42] LABS: VENOUS BLOOD BASE EXCESS -0.3 mmol/L; VENOUS BLOOD HCO3 22.2 mmol/L (20-32); VENOUS BLOOD PCO2 30.2 mmHg (35-63); VENOUS BLOOD PH 7.48 (7.30-7.42)
[2020-03-30 12:47] LABS: ABSOLUTE LYMPHOCYTES (AUTO) 1.1 10^3/uL (0.5-4.7); ABSOLUTE MONOCYTES (AUTO) 0.6 10^3/uL (0.1-1.4); ABSOLUTE NEUT (AUTO) 3.7 10^3/uL (1.7-8.2); BASOPHILS % (AUTO) 0.1 % (0-2); EOSINOPHILS % (AUTO) 0.1 % (0-6); HEMATOCRIT 37.3 % (36.0-47.0); HEMOGLOBIN 12.8 g/dL (12.0-15.5); LYMPHOCYTES % (AUTO) 20.1 % (13-45); MEAN CORPUSCULAR HEMOGLOBIN 30.9 pg (27.0-33.4); MEAN CORPUSCULAR HGB CONC 34.3 g/dL (32.0-36.0); MEAN CORPUSCULAR VOLUME 90 fl (80-97); MONOCYTES % (AUTO) 10.9 % (3-13); PLATELET COUNT 102 10^3/uL (150-450); RED BLOOD COUNT 4.15 10^6/uL (3.72-5.28); RED CELL DISTRIBUTION WIDTH 15.6 % (11.5-14.0); SEGMENTED NEUTROPHILS % (AUTO) 68.8 % (42-78); TOTAL CELLS COUNTED % (AUTO) 100 %; WHITE BLOOD COUNT 5.4 10^3/uL (4.0-10.5)
--- NOTE | 2020-03-30 13:00 | ER Document Report ---
ED General - General Chief Complaint: Altered Mental Status Stated Complaint: AMS Time Seen by Provider: 03/30/20 12:44 Notes: Patient is a 79-year-old female who comes emergency department by EMS from home for chief complaint of altered mental status. Patient also has been recently diagnosed with positive COVID-19 test and was at [facility], she was sent home on 03/24/2020 with azithromycin with the diagnosis of COVID-19 pneumonia and has been reportedly been taking this. Patient was found to be hypoxic at 86% on room air and was placed on oxygen, she was placed on 4 L nasal cannula upon arrival to the emergency department as well. She is not on oxygen at home. She has no reported history of asthma, COPD, cardiopulmonary history. Past medical history of hypertension, hyperlipidemia, type 2 diabetes. History is somewhat limited based on patient's ability answer questions although she is oriented to person, place, and some events. TRAVEL OUTSIDE OF THE [place] IN LAST 30 DAYS: No - Related Data Allergies/Adverse Reactions: No Known Allergies Allergy (Verified 07/04/15 20:48) Past Medical History - General Information source: Patient, Emergency Med Personnel - Social History Smoking Status: Never Smoker Chew tobacco use (# tins/day): No Frequency of alcohol use: None Drug Abuse: None Lives with: Family Family History: None, CVA Patient has homicidal ideation: No - Past Medical History Cardiac Medical History: Reports: Hx Heart Attack, Hx Hypercholesterolemia, Hx Hypertension Denies: Hx Congestive Heart Failure, Hx DVT, Hx Pulmonary Embolism Pulmonary Medical History: Denies: Hx Asthma, Hx COPD Neurological Medical History: Denies: Hx Seizures Endocrine Medical History: Reports: Hx Diabetes Mellitus Type 2. Denies: Hx Diabetes Mellitus Type 1, Hx Hyperthyroidism, Hx Hypothyroidism Malignancy Medical History: Reports: Hx Skin Cancer GI Medical History: Denies: Hx Cirrhosis, Hx Gastroesophageal Reflux Disease, Hx Hepatitis Musculoskeletal Medical History: Reports Hx Arthritis, Reports Hx Gout Psychiatric Medical History: Denies: Hx Depression Infectious Medical History: Denies: Hx Hepatitis Past Surgical History: Reports: Hx Orthopedic Surgery - Foot surgery, Hx Vascular Surgery - Left lower extremity arterial stent implant. Review of Systems - Review of Systems Constitutional: See HPI EENT: No symptoms reported Cardiovascular: No symptoms reported Respiratory: See HPI Gastrointestinal: No symptoms reported Genitourinary: No symptoms reported Female Genitourinary: No symptoms reported Musculoskeletal: No symptoms reported Skin: No symptoms reported Hematologic/Lymphatic: No symptoms reported Neurological/Psychological: See HPI Physical Exam - Vital signs Vitals: Temp 98.8 F 03/30/20 12:09 - Notes Notes: GENERAL: Alert, interacts well. No acute distress. HEAD: Normocephalic, atraumatic. EYES: Pupils equal, round, and reactive to light. Extraocular movements intact. ENT: Oral mucosa moist, tongue midline. Oropharynx unremarkable. Airway patent. NECK: Full range of motion. Supple. Trachea midline. No lymphadenopathy. LUNGS: Bilateral rales in the mid to lower lungs, no wheezes or rhonchi. No respiratory distress. Speaks in full sentences. HEART: Regular rate and rhythm. No murmur ABDOMEN: Soft, non-tender. Non-distended. EXTREMITIES: Moves all 4 extremities spontaneously. No edema, normal radial and dorsalis pedis pulses bilaterally. No cyanosis. BACK: no cervical, thoracic, lumbar midline tenderness. No saddle anesthesia, normal distal neurovascular exam. Moves all extremities in full range of motion. NEUROLOGICAL: Alert and oriented x3. Normal speech. Cranial nerves II through XII grossly intact. Strength 5/5 in all extremities. PSYCH: Normal affect, normal mood. SKIN: Warm, dry, normal turgor. No rashes or lesions noted. Course - Re-evaluation Re-evalutation: Patient hypoxic in the 80s on room air, she is not on home oxygen. She has obvious rales on her evaluation at bedside. Or she speaks without difficulty, is in no distress, she is not tachycardic, hypotensive, or febrile. Clinical impression is COVID-19 pneumonia. Patient was placed on 4 L nasal cannula and is 93 to 94% oxygen saturation. She has no respiratory distress with this. Chest x-ray read as negative but appears to have bilateral infiltrates per my read. Given dexamethasone. CBC, chemistry nonspecific, troponin indeterminate. CT of the head unremarkable. Remaining work-up unremarkable. Patient will require hospitalization for COVID-19 pneumonia and hypoxia. Discussed with Terri Fuentes NP, patient accepted to telemetry full admission. She asks for D-dimer but does not desire broad-spectrum antibiotics or CTA at this time. - Vital Signs Vital signs: Temp Pulse Resp BP Pulse Ox 98.8 F 23 H 95/84 L 94 03/30/20 12:29 03/30/20 13:01 03/30/20 13:00 03/30/20 13:01 - Laboratory Results Result Diagrams: 03/30/20 12:18 03/30/20 12:18 Laboratory Results Interpreted: 03/30/20 03/30/20 03/30/20 12:18 12:18 12:18 RDW 15.6 H Plt Count 102 L D-Dimer VBG pH 7.48 H VBG pCO2 30.2 L Sodium 134.1 L Glucose 183 H Magnesium 1.5 L Direct Bilirubin 0.5 H AST 72 H ALT 38 H Albumin 3.1 L Urine Protein Urine Ketones 03/30/20 03/30/20 12:18 12:50 RDW Plt Count D-Dimer 2.20 H VBG pH VBG pCO2 Sodium Glucose Magnesium Direct Bilirubin AST ALT Albumin Urine Protein 100 H Urine Ketones TRACE H Critical Laboratory Results Reviewed: No Critical Results - Radiology Results Critical Radiology Results Reviewed: No Critical Results Discharge - Discharge Clinical Impression: Hypoxia, COVID-19 Condition: Stable Disposition: ADMITTED INPATIENT Admitting Provider: Tre (Hospitalist) Unit Admitted: Telemetry
[2020-03-30 13:01] LABS: ALBUMIN 3.1 g/dL (3.5-5.0); ALKALINE PHOSPHATASE 77 U/L (38-126); ANION GAP 8 (5-19); ASPARTATE AMINO TRANSFERASE 72 U/L (14-36); BILIRUBIN,DIRECT 0.5 mg/dL (0.0-0.4); BILIRUBIN,TOTAL 1.1 mg/dL (0.2-1.3); BLOOD UREA NITROGEN 14 mg/dL (7-20); CALCIUM 9.3 mg/dL (8.4-10.2); CARBON DIOXIDE 24 mmol/L (22-30); CHLORIDE 102 mmol/L (98-107); GLUCOSE 183 mg/dL (75-110); POTASSIUM 4.8 mmol/L (3.6-5.0); TOTAL PROTEIN 6.8 g/dL (6.3-8.2)
[2020-03-30 13:02] LABS: ALCOHOL < 10 mg/dL (NONE DETECTED)
[2020-03-30 13:13] LABS: APPEARANCE,URINE CLEAR; BILIRUBIN,URINE NEGATIVE (NEGATIVE); COLOR,URINE AMBER; GLUCOSE, URINE NEGATIVE (NEGATIVE); KETONES,URINE TRACE mg/dL (NEGATIVE); PROTEIN,URINE 100 mg/dL (NEGATIVE); URINE SPECIFIC GRAVITY 1.023; UROBILINOGEN,URINE NEGATIVE mg/dL (<2.0)
--- NOTE | 2020-03-30 13:15 | RADIOLOGY REPORT (SQ) ---
EXAM DESCRIPTION: CHEST SINGLE VIEW IMAGES COMPLETED DATE/TIME: 03/30/2020 1:06 pm REASON FOR STUDY: hypoxia COMPARISON: None. NUMBER OF VIEWS: One view. TECHNIQUE: Single frontal radiographic view of the chest acquired. LIMITATIONS: None. FINDINGS: LUNGS AND PLEURA: No opacities, masses or pneumothorax. No pleural effusion. Attenuated bl ood vessels and flattened pascual-diaphragms. MEDIASTINUM AND HILAR STRUCTURES: No masses. Contour normal. HEART AND VASCULAR STRUCTURES: Heart normal in size. Normal vasculature. BONES: No acute findings. HARDWARE: None in the chest. OTHER: No other significant finding. IMPRESSION: COPD. NO ACUTE RADIOGRAPHIC FINDING IN THE CHEST. TECHNICAL DOCUMENTATION: JOB ID: [id number] 2010 [employer]- All Rights Reserved Reading location - IP/workstation name: [email or web address]
[2020-03-30] MEDS ORDERED: DEXAMETHASONE SOD PHOSPHATE INJ 4 MG/1 ML VIAL IV ONE (13:30)
[2020-03-30 13:34] LABS: URINE AMPHETAMINES SCREEN NEGATIVE; URINE BARBITURATES SCREEN NEGATIVE; URINE BENZODIAZEPINES SCREEN NEGATIVE; URINE COCAINE SCREEN NEGATIVE; URINE MARIJUANA (THC) SCREEN NEGATIVE; URINE METHADONE SCREEN NEGATIVE; URINE PHENCYCLIDINE SCREEN NEGATIVE
--- NOTE | 2020-03-30 13:57 | RADIOLOGY REPORT (SQ) ---
EXAM DESCRIPTION: CT HEAD WITHOUT IMAGES COMPLETED DATE/TIME: 03/30/2020 10:47 am REASON FOR STUDY: AMS COMPARISON: None. TECHNIQUE: Axial images acquired through the brain without intravenous contrast. Images reviewed wi th bone, brain and subdural windows. Additional sagittal and coronal reconstructions were generated. Images stored on PACS. All CT scanners at this facility use dose modulation, iterative reconstruction, and/or weight based d osing when appropriate to reduce radiation dose to as low as reasonably achievable (ALARA). [facility]: Dose Right [facility]: CareDose [facility]: Dose Right [facility]: Teradose 4D [facility]: Smart [employer] RADIATION DOSE: CT Rad equipment meets quality standard of care and radiation dose reduction techniq ues were employed. CTDIvol: 48.8 mGy. DLP: 860 mGy-cm. mGy. LIMITATIONS: None. FINDINGS: VENTRICLES: Prominent. CEREBRUM: No masses. No hemorrhage. No midline shift. Areas of low density in the white matter mos t likely due to chronic micro-vascular ischemic change. No evidence for acute infarction. CEREBELLUM: No masses. No hemorrhage. No alteration of density. No evidence for acute infarction. EXTRAAXIAL SPACES: Mild age-related involutional change. No fluid collections. No masses. ORBITS AND GLOBE: No intra- or extraconal masses. Normal contour of globe without masses. CALVARIUM: No fracture. PARANASAL SINUSES: No fluid or mucosal thickening. SOFT TISSUES: No mass or hematoma. OTHER: No other significant finding. IMPRESSION: MILD CHRONIC CHANGES OF ATROPHY AND MICROVASCULAR ISCHEMIA. NO ACUTE PROCESS. EVIDENCE OF ACUTE STROKE: NO. TECHNICAL DOCUMENTATION: JOB ID: [id number] Quality ID # [id number]: Final reports with documentation of one or more dose reduction techniques (e.g., Au tomated exposure control, adjustment of the mA and/or kV according to patient size, use of iterative reconstruction technique) 2010 [employer]- All Rights Reserved Reading location - IP/workstation name: [email or web address]
[2020-03-30] MEDS ORDERED: ALBUTEROL SULFATE 0.083% NEB 2.5 MG/3 ML AMPUL NEB PRN (17:41)
[2020-03-30] MEDS ORDERED: ACETAMINOPHEN 325 MG TABLET PO PRN (17:41)
--- NOTE | 2020-03-30 17:57 | EKG REPORT ---
SEVERITY:- ABNORMAL ECG - SINUS RHYTHM LVH WITH SECONDARY REPOLARIZATION ABNORMALITY : Confirmed by: Howard Campbell MD 30-Mar-2020 17:57:00
[2020-03-30] MEDS ORDERED: ONDANSETRON HCL INJ/PF 4 MG/2 ML SDV IV PRN (18:05)
[2020-03-30] MEDS ORDERED: MAG HYDROX/AL HYDROX/SIMETH SUSP 30 ML UDCUP PO PRN (18:05)
[2020-03-30] MEDS ORDERED: DEXTROSE 50%-WATER 25 GM/50 ML DISP.SYRIN IV PRN ×2 (18:08)
[2020-03-30] MEDS ORDERED: DEXTROSE 40% GEL 15 GM TUBE PO PRN ×2 (18:08)
[2020-03-30] MEDS ORDERED: GLUCAGON,HUMAN RECOMB 1 MG INJ IM PRN (18:08)
--- NOTE | 2020-03-30 18:21 | PDOC H&P ---
History of Present Illness Admission Date/PCP: 03/30/20 16:37 Patient complains of: confusion History of Present Illness: EUNICE OAKES is a 79 year old female with a past medical history significant for hypertension, hyperlipidemia, DM 2, and recent diagnosis of Covid who presented to the emergency department today with a complaint of increased confusion by fam daniel members. EMS found her to be hypoxic with an SPO2 of 86 on room air. She is not home O2 dependent. Family relates that the patient has some early dementia but that her current confusion is worse than baseline. Patient was diagnosed with COVID-19 at outside facility and discharged on azithromycin; completed the course 2 days ago. Evaluation in the emergency department revealed tachypnea (RR 28), and hypoxia on room air. Remaining vital signs are stable. CBC is unremarkable, D-dimer elevated 2.20, VBG shows respiratory alkalosis, chemistry notable for elevated glucose, hypomagnesium, and minimally elevated LFTs. CRP, LDH, ferritin pending. Urinalysis shows trace ketones. UDS and serum alcohol negative. Chest x-ray was notable for COPD, head CT with mild chronic changes of atrophy and microvascular ischemia. She was referred to the hospital service for further evaluation management of the above-stated complaints and findings. Past Medical History Cardiac Medical History: Reports: Myocardial Infarction, Hyperlipidema, Hypertension Denies: Congestive Heart Failure, DVT, Pulmonary Embolism Pulmonary Medical History: Denies: Asthma, Chronic Obstructive Pulmonary Disease (COPD) Neurological Medical History: Denies: Seizures Endocrine Medical History: Reports: Diabetes Mellitus Type 2 Denies: Diabetes Mellitus Type 1, Hypothyroidism Malignancy Medical History: Reports: Skin Cancer GI Medical History: Denies: Cirrhosis, Gastroesophageal Reflux Disease, Hepatitis Musculoskeltal Medical History: Reports: Arthritis, Gout Psychiatric Medical History: Denies: Depression Hematology: Reports: None Past Surgical History Past Surgical History: Reports: Orthopedic Surgery - Foot surgery, Vascular Surgery - Left lower extremity arterial stent implant. Social History Information Source: [facility] Records Lives with: Family Smoking Status: Never Smoker Electronic Cigarette use?: No Frequency of Alcohol Use: None Hx Recreational Drug Use: No Drugs: None Hx Prescription Drug Abuse: No Family History Family History: None, CVA Parental Family History Reviewed: Yes Children Family History Reviewed: Yes Sibling(s) Family History Reviewed.: Yes Medication/Allergy Home Medications: Allopurinol [Zyloprim 300 mg Tablet] 300 mg PO DAILY 06/19/16 Glimepiride [Amaryl] 2 mg PO BID 06/19/16 Metformin HCl [Glucophage] 1,000 mg PO BID 06/19/16 Metoprolol Tartrate [Lopressor 50 mg Tablet] 50 mg PO DAILY 06/19/16 Rosuvastatin Calcium [Crestor 5 mg Tablet] 5 mg PO Q2D 06/19/16 Allopurinol [Zyloprim 300 mg Tablet] 300 mg PO DAILY tablet 06/20/16 Allergies/Adverse Reactions: No Known Allergies Allergy (Verified 07/04/15 20:48) Review of Systems Constitutional: PRESENT: fatigue. ABSENT: chills, fever(s), headache(s), weight gain, weight loss Eyes: ABSENT: visual disturbances Ears: ABSENT: hearing changes Cardiovascular: ABSENT: chest pain, dyspnea on exertion, edema, orthropnea, palpitations Respiratory: PRESENT: cough, dyspnea. ABSENT: hemoptysis Gastrointestinal: ABSENT: abdominal pain, constipation, diarrhea, hematemesis, hematochezia, nausea, vomiting Genitourinary: ABSENT: dysuria, hematuria Musculoskeletal: ABSENT: joint swelling Integumentary: ABSENT: rash, wounds Neurological: PRESENT: confusion. ABSENT: abnormal gait, abnormal speech, dizziness, focal weakness, syncope Psychiatric: ABSENT: anxiety, depression, homidical ideation, suicidal ideation Endocrine: ABSENT: cold intolerance, heat intolerance, polydipsia, polyuria Hematologic/Lymphatic: ABSENT: easy bleeding, easy bruising Physical Exam Vital Signs: Temp Pulse Resp BP Pulse Ox 98.8 F 23 H 95/84 L 94 03/30/20 12:29 03/30/20 13:01 03/30/20 13:00 03/30/20 13:01 Intake & Output 03/29/20 03/30/20 03/31/20 06:59 06:59 06:59 Weight 63.957 kg General appearance: PRESENT: no acute distress, well-developed, well-nourished Head exam: PRESENT: atraumatic, normocephalic Eye exam: PRESENT: conjunctiva pink, EOMI, PERRLA. ABSENT: scleral icterus Mouth exam: PRESENT: moist, tongue midline Neck exam: ABSENT: carotid bruit, JVD, lymphadenopathy, thyromegaly Respiratory exam: PRESENT: clear to auscultation marissa, symmetrical, tachypnea, other - supplemental oxygen by NC. ABSENT: rales, rhonchi, wheezes Cardiovascular exam: PRESENT: RRR. ABSENT: diastolic murmur, rubs, systolic mur mur Pulses: PRESENT: normal dorsalis pedis pul Vascular exam: PRESENT: normal capillary refill GI/Abdominal exam: PRESENT: normal bowel sounds, soft. ABSENT: distended, guarding, mass, organolmegaly, rebound, tenderness Rectal exam: PRESENT: deferred Extremities exam: PRESENT: full ROM. ABSENT: calf tenderness, clubbing, pedal edema Neurological exam: PRESENT: alert, awake, oriented to person, oriented to place, CN II-XII grossly intact, other - pleasantly confused. ABSENT: oriented to time, oriented to situation, motor sensory deficit Psychiatric exam: PRESENT: appropriate affect, normal mood. ABSENT: homicidal i deation, suicidal ideation Skin exam: PRESENT: dry, intact, warm. ABSENT: cyanosis, rash Results Laboratory Results: 03/30/20 12:18 03/30/20 12:18 03/30/20 03/30/20 03/30/20 12:18 12:18 12:18 WBC 5.4 RBC 4.15 Hgb 12.8 Hct 37.3 MCV 90 MCH 30.9 MCHC 34.3 RDW 15.6 H Plt Count 102 L Seg Neutrophils % 68.8 VBG pH VBG pCO2 VBG HCO3 VBG Base Excess Sodium 134.1 L Potassium 4.8 Chloride 102 Carbon Dioxide 24 Anion Gap 8 BUN 14 Creatinine 0.63 Est GFR ( Amer) > 60 Glucose 183 H Lactic Acid 2.1 Calcium 9.3 Magnesium 1.5 L Total Bilirubin 1.1 AST 72 H Alkaline Phosphatase 77 Total Protein 6.8 Albumin 3.1 L Urine Color Urine Appearance Urine pH Ur Specific [place] Urine Protein Urine Glucose (UA) Urine Ketones Urine Blood Urine RBC (Auto) 03/30/20 03/30/20 12:18 12:50 WBC RBC Hgb Hct MCV MCH MCHC RDW Plt Count Seg Neutrophils % VBG pH 7.48 H VBG pCO2 30.2 L VBG HCO3 22.2 VBG Base Excess -0.3 Sodium Potassium Chloride Carbon Dioxide Anion Gap BUN Creatinine Est GFR ( Amer) Glucose Lactic Acid Calcium Magnesium Total Bilirubin AST Alkaline Phosphatase Total Protein Albumin Urine Color SUSHANT Urine Appearance CLEAR Urine pH 6.0 Ur Specific [place] 1.023 Urine Protein 100 H Urine Glucose (UA) NEGATIVE Urine Ketones TRACE H Urine Blood NEGATIVE Urine RBC (Auto) 1 Impressions: Chest X-Ray 03/30/20 00:00 IMPRESSION: COPD. NO ACUTE RADIOGRAPHIC FINDING IN THE CHEST. Head CT 03/30/20 12:57 IMPRESSION: MILD CHRONIC CHANGES OF ATROPHY AND MICROVASCULAR ISCHEMIA. NO ACUTE PROCESS. EVIDENCE OF ACUTE STROKE: NO. Assessment and Plan - Diagnosis (1) COVID-19 Is this a current diagnosis for this admission?: Yes Plan: COVID positive. D-dimer 2.20 Ferritin, CRP, LDH. CTA Chest pending Full dose Lovenox r/t d-dimer results. Provide supplemental oxygen as needed maintain saturations greater than 89%. Just completed outpatient course of azithromycin. Start ivermectin 12 mg x 2 doses. Solu-Medrol 40 mg twice daily. As needed nebulizer treatments. Zinc, vitamin D, vitamin C, and melatonin supplementation. Encourage pulmonary toilet. Isolation precautions. (2) Acute respiratory failure with hypoxia Is this a current diagnosis for this admission?: Yes Plan: Secondary to #1. Management as above. (3) HLD (hyperlipidemia) Qualifiers: Hyperlipidemia type: unspecified Qualified Code(s): E78.5 - Hyperlipidemia, unspecified Is this a current diagnosis for this admission?: Yes Plan: Home dose statin. (4) HTN (hypertension) Qualifiers: Hypertension type: essential hypertension Qualified Code(s): I10 - Essential (primary) hypertension Is this a current diagnosis for this admission?: Yes Plan: Continue home antihypertensives once reconciled. (5) DM2 (diabetes mellitus, type 2) Is this a current diagnosis for this admission?: Yes Plan: Holding oral medications while admitted. We will check A1c with a.m. lab work. Accu-Cheks before meals and at bedtime with Humalog for sliding scale coverage. Hypoglycemia protocol in place. - Time Time Spent with patient: 35 or more minutes Medications reviewed and adjusted accordingly: Yes Anticipated Discharge Disposition: Home, Self Care Anticipated Discharge Timeframe: within 48 hours
[2020-03-30 18:23] LABS: C-REACTIVE PROTEIN 84.4 mg/L (<10.0)
[2020-03-30] MEDS ORDERED: IVERMECTIN 3 MG TABLET ONE (21:54)
[2020-03-30] MEDS: IVERMECTIN 3 MG TABLET PO SCH (22:32)
[2020-03-30] MEDS: INSULIN LISPRO 100 UNIT/ML 3 ML VIAL SUBCUT SCH (22:32)
[2020-03-30] MEDS: METHYLPREDNISOLONE INJ 40 MG/1 ML SDV IV SCH (22:33)
[2020-03-30] MEDS: ASCORBIC ACID 500 MG TABLET PO SCH (22:33)
[2020-03-30] MEDS: ENOXAPARIN SODIUM INJ 60 MG/0.6 ML DISP.SYRIN SUBCUT SCH (22:33)
[2020-03-31 04:57] LABS: ABSOLUTE LYMPHOCYTES (AUTO) 0.5 10^3/uL (0.5-4.7); ABSOLUTE MONOCYTES (AUTO) 0.2 10^3/uL (0.1-1.4); ABSOLUTE NEUT (AUTO) 3.1 10^3/uL (1.7-8.2); BASOPHILS % (AUTO) 0.2 % (0-2); HEMATOCRIT 34.8 % (36.0-47.0); HEMOGLOBIN 11.8 g/dL (12.0-15.5); MEAN CORPUSCULAR HEMOGLOBIN 30.6 pg (27.0-33.4); MEAN CORPUSCULAR HGB CONC 33.9 g/dL (32.0-36.0); MEAN CORPUSCULAR VOLUME 90 fl (80-97); MONOCYTES % (AUTO) 6.1 % (3-13); RED BLOOD COUNT 3.85 10^6/uL (3.72-5.28); RED CELL DISTRIBUTION WIDTH 15.2 % (11.5-14.0); SEGMENTED NEUTROPHILS % (AUTO) 80.7 % (42-78); TOTAL CELLS COUNTED % (AUTO) 100 %; WHITE BLOOD COUNT 3.8 10^3/uL (4.0-10.5)
[2020-03-31 05:20] LABS: ANION GAP 10 (5-19); BLOOD UREA NITROGEN 17 mg/dL (7-20); CALCIUM 9.3 mg/dL (8.4-10.2); CARBON DIOXIDE 21 mmol/L (22-30); CHLORIDE 104 mmol/L (98-107); GLUCOSE 224 mg/dL (75-110); POTASSIUM 4.8 mmol/L (3.6-5.0)
[2020-03-31 05:28] LABS: PLATELET COUNT 87 10^3/uL (150-450)
--- NOTE | 2020-03-31 07:31 | RADIOLOGY REPORT (SQ) ---
EXAM DESCRIPTION: CT CHEST ANGIOGRAPHY WITHOUT THEN WITH IV CONTRAST COMPLETED DATE/TME: 03/31/2020 05:02 CLINICAL HISTORY: 79 years Female, elevated d. dimer, hypoxia Comparison: CR, 03/30/2020. Technique: IV contrast. Coronal and sagittal reformat. 3d reconstruction. This exam was performed according to our departmental dose-optimization program, which includes automated exposure control, adjustment of the mA and/or kV according to patient size and/or use of iterative reconstruction technique.[facility]: Dose Right [facility]: CareDose [facility]: Dose Right [facility]: Teradose 4D [facility]: [employer] LIMITATIONS: Quality of pulmonary arteriogram: Suboptimal. Findings: Moderate to severe confluent groundglass and some patchy opacity predominantly at the periphery of bilateral lungs. 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 No pulmonary embolus. No right ventricular strain. Hepatic steatosis. Cholelithiasis/gallbladder sludge. Coronary arterial calcification. Atherosclerotic vascular disease. Renal arterial calcification. Calcification associated with the mitral valve. Left atrial enlargement. Imaging note: 1/2 of mitral valve calcifications have been shown to be associated with mitral stenosis. Lobular liver surface contour which may indicate cirrhosis or other diffuse hepatic process. Splenomegaly. Mild mediastinal lymphadenopathy. 1.0 cm sclerotic lesion of the T3 vertebral body. Consider direct comparison with prior exams and or whole body bone scan, especially if there is increased pretest risk such as prior history of malignancy. Inferior neck, axillae, mediastinum, airway, vasculature, upper abdomen, and musculoskeleton appear otherwise unremarkable. Impression: 1. Moderate to severe confluent groundglass and some patchy opacity predominantly at the periphery of bilateral lungs.Commonly reported imaging features of (COVID-19 or viral) pneumonia are present. Other processes such as influenza pneumonia and organizing pneumonia, as can be seen with drug toxicity and connective tissue disease, can cause a similar imaging pattern. [PneTyp] Recommend CR/CT surveillance including at 7-12 weeks following initiation of any clinically warranted therapy. 2. 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 3. No pulmonary embolus. No right ventricular strain. 4. Calcification associated with the mitral valve. Left atrial enlargement. Imaging note: 1/2 of mitral valve calcifications have been shown to be associated with mitral stenosis. 5. Lobular liver surface contour which may indicate cirrhosis or other diffuse hepatic process. Hepatic steatosis. 6. Cholelithiasis/gallbladder sludge. 7. Coronary arterial calcification. Renal arterial calcification. 8. Splenomegaly. 9. 1.0 cm sclerotic lesion of the T3 vertebral body. Consider direct comparison with prior exams and or whole body bone scan, especially if there is increased pretest risk such as prior history of malignancy.
[2020-03-31] MEDS: INSULIN LISPRO 100 UNIT/ML 3 ML VIAL SUBCUT SCH ×4 (08:23→21:15)
[2020-03-31] MEDS: ENOXAPARIN SODIUM INJ 60 MG/0.6 ML DISP.SYRIN SUBCUT SCH ×2 (10:46→21:16)
[2020-03-31] MEDS: ZINC SULFATE 220 MG CAPSULE PO SCH (10:47)
[2020-03-31] MEDS: ASCORBIC ACID 500 MG TABLET PO SCH ×2 (11:10→18:07)
[2020-03-31] MEDS: METHYLPREDNISOLONE INJ 40 MG/1 ML SDV IV SCH (11:10)
[2020-03-31] MEDS: CHOLECALCIFEROL (D3) 1,000 UNIT (25 MCG) TABLET PO SCH (11:10)
[2020-03-31] MEDS: ASPIRIN 81 MG TABLET, ENT COATED PO SCH (11:10)
[2020-03-31] MEDS: DOCUSATE SODIUM 100 MG CAPSULE PO SCH (11:10)
[2020-03-31 11:18] LABS: APPEARANCE,URINE CLEAR; BILIRUBIN,URINE NEGATIVE (NEGATIVE); COLOR,URINE YELLOW; GLUCOSE, URINE >=500 mg/dL (NEGATIVE); KETONES,URINE 20 mg/dL (NEGATIVE); LEUKOCYTE ESTERASE,URINE SMALL (NEGATIVE); NITRITE,URINE NEGATIVE (NEGATIVE); PROTEIN,URINE 100 mg/dL (NEGATIVE); URINE SPECIFIC GRAVITY 1.047; UROBILINOGEN,URINE NEGATIVE mg/dL (<2.0)
[2020-03-31] MEDS ORDERED: PHARMACY COMMUNICATION ORDER MC NR (13:15)
--- NOTE | 2020-03-31 13:59 | PDOC PROGRESS REPORT ---
Subjective Date:: 03/31/20 Subjective:: As per admitting physician's note EUNICE OAKES is a 79 year old female with a past medical history significant for hypertension, hyperlipidemia, DM 2, and recent diagnosis of Covid who presented to the emergency department today with a complaint of increased confusion by family members. EMS found her to be hypoxic with an SPO2 of 86 on room air. She is not home O2 dependent. Family relates that the patient has some early dementia but that her current confusion is worse than baseline. Patient was diagnosed with COVID-19 at outside facility and discharged on azithromycin; completed the course 2 days ago. Evaluation in the emergency department revealed tachypnea (RR 28), and hypoxia on room air. Remaining vital signs are stable. CBC is unremarkable, D-dimer elevated 2.20, VBG shows respiratory alkalosis, chemistry notable for elevated glucose, hypomagnesium, and minimally elevated LFTs. CRP, LDH, ferritin pending. Urinalysis shows trace ketones. UDS and serum alcohol negative. Chest x-ray was notable for COPD, head CT with mild chronic changes of atrophy and microvascular ischemia. She was referred to the hospital service for further evaluation management of the above-stated complaints and findings. 03/31/2020. No acute events overnight. Patient comfortable resting in bed no apparent distress. Alert and oriented, cooperative with physical examination, denies any fever, chills, nausea, vomiting, diarrhea, constipation or any urinary symptoms. On supplemental oxygen 2 L nasal cannula. Reason For Visit: ACUTE RESPIRATORY FAILURE W/HYPOXIA,COVID 19 Physical Exam Vital Signs: Temp Pulse Resp BP Pulse Ox 97.6 F 87 20 99/49 L 90 L 03/31/20 11:31 03/31/20 11:31 03/31/20 11:31 03/31/20 11:31 03/31/20 11:31 Intake & Output 03/30/20 03/31/20 04/01/20 06:59 06:59 06:59 Weight 62.1 kg General appearance: PRESENT: no acute distress, well-developed, well-nourished Head exam: PRESENT: atraumatic, normocephalic Respiratory exam: PRESENT: crackles, symmetrical. ABSENT: rales, rhonchi, wheezes Cardiovascular exam: PRESENT: RRR. ABSENT: diastolic murmur, rubs, systolic murmur Pulses: PRESENT: normal dorsalis pedis pul GI/Abdominal exam: PRESENT: normal bowel sounds, soft. ABSENT: distended, guarding, mass, organolmegaly, rebound, tenderness Neurological exam: PRESENT: alert, awake, oriented to person, oriented to place, oriented to time, oriented to situation, CN II-XII grossly intact. ABSENT: motor sensory deficit Results Laboratory Results: 03/31/20 04:23 03/31/20 04:23 03/30/20 03/31/20 03/31/20 12:18 04:23 04:23 WBC 3.8 L RBC 3.85 Hgb 11.8 L Hct 34.8 L MCV 90 MCH 30.6 MCHC 33.9 RDW 15.2 H Plt Count 87 L Seg Neutrophils % 80.7 H Sodium 135.4 L Potassium 4.8 Chloride 104 Carbon Dioxide 21 L Anion Gap 10 BUN 17 Creatinine 0.63 Est GFR ( Amer) > 60 Glucose 224 H Calcium 9.3 Ferritin 303.00 H C-Reactive Protein 84.4 H Urine Color Urine Appearance Urine pH Ur Specific [place] Urine Protein Urine Glucose (UA) Urine Ketones Urine Blood Urine Nitrite Ur Leukocyte Esterase Urine WBC (Auto) Urine RBC (Auto) 03/31/20 10:15 WBC RBC Hgb Hct MCV MCH MCHC RDW Plt Count Seg Neutrophils % Sodium Potassium Chloride Carbon Dioxide Anion Gap BUN Creatinine Est GFR ( Amer) Glucose Calcium Ferritin C-Reactive Protein Urine Color YELLOW Urine Appearance CLEAR Urine pH 5.0 Ur Specific [place] 1.047 Urine Protein 100 H Urine Glucose (UA) >=500 H Urine Ketones 20 H Urine Blood NEGATIVE Urine Nitrite NEGATIVE Ur Leukocyte Esterase SMALL H Urine WBC (Auto) 8 Urine RBC (Auto) 1 Impressions: Chest X-Ray 03/30/20 00:00 IMPRESSION: COPD. NO ACUTE RADIOGRAPHIC FINDING IN THE CHEST. Head CT 03/30/20 12:57 IMPRESSION: MILD CHRONIC CHANGES OF ATROPHY AND MICROVASCULAR ISCHEMIA. NO ACUTE PROCESS. EVIDENCE OF ACUTE STROKE: NO. Assessment and Plan - Diagnosis (1) COVID-19 Is this a current diagnosis for this admission?: Yes Plan: Saturating in the low 90s on 2 L nasal cannula. Afebrile. WBC WNL. COVID positive March 16, 2020. Presented with D-dimer 2.20 and elevated ferritin, CRP, LDH. CTA chest positive for moderate to severe confluent groundglass and subpatchy opacity predominantly at the periphery of bilateral lungs. Negative for PE. Provide supplemental oxygen as needed maintain saturations greater than 89%. Continue empiric broad-spectrum IV antibiotics. Continue ivermectin day 1/2 of ivermectin 12 mg Continue dexamethasone. Continue as needed nebulizer treatments. Continue zinc, vitamin D, vitamin C, and melatonin supplementation. Pending convalescent plasma transfusion. Pharmacy has been consulted for remdesivir. Encourage pulmonary toilet. Isolation precautions. (2) Acute respiratory failure with hypoxia Is this a current diagnosis for this admission?: Yes Plan: Secondary to #1. Management as above. (3) Diabetes mellitus type 2 in obese Is this a current diagnosis for this admission?: Yes Plan: Controlled. Hemoglobin A1c 5.7. Continue diabetic diet, Accu-Chek, hypoglycemia protocol. Continue basal, prandial and correctional insulin. Adjust dosage as needed. Resume home meds upon discharge. Outpatient PCP follow-up. (4) HLD (hyperlipidemia) Qualifiers: Hyperlipidemia type: unspecified Qualified Code(s): E78.5 - Hyperlipidemia, unspecified Is this a current diagnosis for this admission?: Yes Plan: Resume home meds. (5) HTN (hypertension) Qualifiers: Hypertension type: essential hypertension Qualified Code(s): I10 - Essential (primary) hypertension Is this a current diagnosis for this admission?: Yes Plan: Euvolemic. Normotensive. Resume home meds. Adjust meds as needed. (6) Thrombocytopenia Is this a current diagnosis for this admission?: Yes Plan: History of thrombocytopenia. This is likely due to underlying cirrhosis complicated by superimposed COVID-19 pneumonia. No sign of acute bleeding. Fall precautions. Monitor for bleeding. Daily CMP. (7) DM2 (diabetes mellitus, type 2) Is this a current diagnosis for this admission?: Yes Plan: Controlled. Hemoglobin A1c 5.7. Continue diabetic diet, Accu-Chek, hypoglycemia protocol. Continue basal, prandial and correctional insulin. Adjust dosage as needed. Resume home meds upon discharge. Outpatient PCP follow-up. (8) Left ventricular aneurysm Is this a current diagnosis for this admission?: Yes Plan: Family and patient both deny any history of CAD or myocardial infarction. 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 I have discussed this case with Dr. Howard Campbell rejogger who is recommending 2D echo before consulting cardiology or cardiothoracic surgery. Pending 2D echo. - Time Time Spent with patient: 35 or more minutes Anticipated Discharge Disposition: Home with Home Health Anticipated Discharge Timeframe: within 72 hours
[2020-03-31] MEDS ORDERED: AZITHROMYCIN 500 MG in DEXTROSE 5%-WATER 250 ML IV SCH (14:00)
[2020-03-31] MEDS: CEFTRIAXONE 1 GM/D5W RTU 1 GM/50 ML RTUPB IV SCH (14:41)
[2020-03-31 15:43] LABS: A TYPE INFLUENZA AG NEGATIVE (NEGATIVE); B INFLUENZA AG NEGATIVE (NEGATIVE)
[2020-03-31] MEDS ORDERED: REMDESIVIR 200 MG in NORMAL SALINE 250 ML IV ONE (16:00)
[2020-03-31] MEDS ORDERED: INSULIN GLARGINE,HUM.REC.ANLOG 1,000 UNIT/10 ML VIAL (PYX) SUBCUT SCH (20:00)
[2020-04-01 05:13] LABS: FIBRINOGEN 508 mg/dL (209-497); PROTHROMBIN TIME 15.4 SEC (11.4-15.4)
[2020-04-01 05:16] LABS: D-DIMER 3.64 ug/mL (0.00-0.50)
[2020-04-01 05:22] LABS: ABSOLUTE LYMPHOCYTES (AUTO) 0.5 10^3/uL (0.5-4.7); ABSOLUTE MONOCYTES (AUTO) 0.3 10^3/uL (0.1-1.4); ABSOLUTE NEUT (AUTO) 4.7 10^3/uL (1.7-8.2); BASOPHILS % (AUTO) 0.1 % (0-2); HEMATOCRIT 33.2 % (36.0-47.0); HEMOGLOBIN 11.2 g/dL (12.0-15.5); MEAN CORPUSCULAR HEMOGLOBIN 30.4 pg (27.0-33.4); MEAN CORPUSCULAR HGB CONC 33.8 g/dL (32.0-36.0); MEAN CORPUSCULAR VOLUME 90 fl (80-97); MONOCYTES % (AUTO) 5.9 % (3-13); RED BLOOD COUNT 3.69 10^6/uL (3.72-5.28); RED CELL DISTRIBUTION WIDTH 15.4 % (11.5-14.0); TOTAL CELLS COUNTED % (AUTO) 100 %; WHITE BLOOD COUNT 5.6 10^3/uL (4.0-10.5)
[2020-04-01 05:48] LABS: PLATELET COUNT 93 10^3/uL (150-450)
[2020-04-01 06:18] LABS: ARTERIAL BLOOD BASE EXCESS 1.6 mmol/L; ARTERIAL BLOOD H2CO3 1.08 mmol/L (1.05-1.35); ARTERIAL BLOOD HCO3 25.1 mmol/L (20-24); ARTERIAL BLOOD O2 SATURATION 93.3 % (94-98); ARTERIAL BLOOD PH 7.46 (7.35-7.45); ARTERIAL BLOOD PO2 62.7 mmHg (80-100); ARTERIAL BLOOD TOTAL CO2 26.2 mmol/L (21-25)
[2020-04-01 06:22] LABS: ARTERIAL BLOOD FIO2 3L
[2020-04-01] MEDS: INSULIN LISPRO 100 UNIT/ML 3 ML VIAL SUBCUT SCH ×4 (08:06→21:40)
--- NOTE | 2020-04-01 09:37 | XCELERA REPORT ---
[address] [address] Transthoracic Echocardiogram Report Name: EUNICE OAKES Age: 79 yrs Gender: Female : 1940 Patient Status: Inpatient Patient Location: [address] [place] [address] Study Date: 03/31/2020 07:25 PM History: Ventricular aneurysm on CT Height: 63 in Weight: 136 lb BSA: 1.6 m2 Procedure: A complete two-dimensional transthoracic echocardiogram was performed (2D, M-mode, spectral and color flow Doppler). Reason For Study: ventricular aneurysm History: Ventricular aneurysm on CT. Ordering Physician: MARKY CARLOS Performed By: Valentina Walker Interpretation Summary Left ventricular systolic function is mildly reduced. The Ejection Fraction estimate is 45-50% [place] is mildly aneurysmal. [place] is akinetic. No convincing evidence for thrombus. The right ventricle is normal in size and function. There is a mild amount of mitral regurgitation There is no aortic valve stenosis There is a trace amount of tricuspid regurgitation There is no pericardial effusion. MMode/2D Measurements & Calculations RVDd: 2.1 cm LVIDd: 4.3 cm FS: 19.5 % Ao root diam: 2.6 cm IVSd: 0.99 cm LVIDs: 3.5 cm EDV(Teich): 85.1 ml Ao root area: 5.2 cm2 LVPWd: 0.89 cm ESV(Teich): 50.8 ml EF(Teich): 40.3 % Doppler Measurements & Calculations MV E max leticia: MV dec slope: Ao V2 max: LV V1 max P.1 cm/sec 574.5 cm/sec2 144.5 cm/sec 6.7 mmHg MV A max leticia: MV dec time: 0.23 secAo max PG: LV V1 max: 120.1 cm/sec 8.4 mmHg 129.2 cm/sec MV E/A: 1.1 PA V2 max: TR max leticia: 82.9 cm/sec 235.7 cm/sec PA max P.7 mmHg TR max P.3 mmHg Left Ventricle The left ventricle is grossly normal size. There is normal left ventricular wall thickness. [place] is mildly aneurysmal. [place] is akinetic. No convincing evidence for thrombus. Left ventricular systolic function is mildly reduced. The Ejection Fraction estimate is 45-50%. Doppler measurements suggest pseudonormalized left ventricular relaxation, which is associated with grade II/IV or mild to moderate diastolic dysfunction. There is distal septal wall akinesis. There is apical wall akinesis. There is distal anterior wall akinesis. There is distal posterior wall akinesis. Right Ventricle The right ventricle is normal in size and function. Mitral Valve Calcified mitral apparatus. There is no evidence of mitral valve prolapse. There is no mitral valve stenosis. There is a mild amount of mitral regurgitation. Aortic Valve The aortic valve is not well visualized secondary to technical limitations. The aortic valve opens well. There is no aortic valve stenosis. No aortic regurgitation is present. Tricuspid Valve The tricuspid valve is normal in structure and function. There is no tricuspid stenosis. There is a trace amount of tricuspid regurgitation. Tricuspid regurgitation jet envelope not well defined to measure RV systolic pressure accurately. Pulmonic Valve The pulmonic valve is not well visualized. There is no pulmonic valvular stenosis. There is a trace amount of pulmonic regurgitation. Great Vessels The aortic root is normal size. The inferior vena cava appeared normal and decreased < 50% with respiration (RAP 10-15 mmHg). Effusions There is no pericardial effusion. : MARKY CARLOS Anil
[2020-04-01] MEDS ORDERED: INSULIN GLARGINE,HUM.REC.ANLOG 1,000 UNIT/10 ML VIAL SUBCUT SCH (10:00)
[2020-04-01] MEDS: ASPIRIN 81 MG TABLET, ENT COATED PO SCH (10:31)
[2020-04-01] MEDS: CEFTRIAXONE 1 GM/D5W RTU 1 GM/50 ML RTUPB IV SCH (10:31)
[2020-04-01] MEDS: DEXAMETHASONE 4 MG TABLET PO SCH (10:31)
[2020-04-01] MEDS: AZITHROMYCIN 250 MG TABLET PO SCH (10:31)
[2020-04-01] MEDS: INSULIN GLARGINE,HUM.REC.ANLOG 1,000 UNIT/10 ML VIAL SUBCUT SCH (10:32)
[2020-04-01] MEDS: CHOLECALCIFEROL (D3) 1,000 UNIT (25 MCG) TABLET PO SCH (10:32)
[2020-04-01] MEDS: ASCORBIC ACID 500 MG TABLET PO SCH ×2 (10:32→17:27)
[2020-04-01] MEDS: DOCUSATE SODIUM 100 MG CAPSULE PO SCH (10:32)
[2020-04-01] MEDS: ZINC SULFATE 220 MG CAPSULE PO SCH (10:33)
[2020-04-01] MEDS: REMDESIVIR 100 MG in NORMAL SALINE 250 ML IV SCH (11:26)
--- NOTE | 2020-04-01 12:00 | PDOC PROGRESS REPORT ---
Subjective Date:: 04/01/20 Subjective:: As per admitting physician's note EUNICE OAKES is a 79 year old female with a past medical history significant for hypertension, hyperlipidemia, DM 2, and recent diagnosis of Covid who presented to the emergency department today with a complaint of increased confusion by family members. EMS found her to be hypoxic with an SPO2 of 86 on room air. She is not home O2 dependent. Family relates that the patient has some early dementia but that her current confusion is worse than baseline. Patient was diagnosed with COVID-19 at outside facility and discharged on azithromycin; completed the course 2 days ago. Evaluation in the emergency department revealed tachypnea (RR 28), and hypoxia on room air. Remaining vital signs are stable. CBC is unremarkable, D-dimer elevated 2.20, VBG shows respiratory alkalosis, chemistry notable for elevated glucose, hypomagnesium, and minimally elevated LFTs. CRP, LDH, ferritin pending. Urinalysis shows trace ketones. UDS and serum alcohol negative. Chest x-ray was notable for COPD, head CT with mild chronic changes of atrophy and microvascular ischemia. She was referred to the hospital service for further evaluation management of the above-stated complaints and findings. 03/31/2020. No acute events overnight. Patient comfortable resting in bed no apparent distress. Alert and oriented, cooperative with physical examination, denies any fever, chills, nausea, vomiting, diarrhea, constipation or any urinary symptoms. On supplemental oxygen 2 L nasal cannula. 04/01/2020. No acute events overnight. Saw patient this morning comfortably sitting at the edge of her bed, enjoying her breakfast, awake, alert and oriented, pleasant and cooperative with physical examination, stating that she slept well last night, denies any fever, chills, nausea, vomiting. Reason For Visit: ACUTE RESPIRATORY FAILURE W/HYPOXIA,COVID 19 Physical Exam Vital Signs: Temp Pulse Resp BP Pulse Ox 97.4 F 86 17 121/67 95 04/01/20 07:48 04/01/20 07:48 04/01/20 07:48 04/01/20 07:48 04/01/20 07:48 Intake & Output 03/31/20 04/01/20 04/02/20 06:59 06:59 06:59 Intake Total 1432 Output Total 900 Balance 532 Weight 62.1 kg 62 kg General appearance: PRESENT: no acute distress, well-developed, well-nourished Head exam: PRESENT: atraumatic, normocephalic Respiratory exam: PRESENT: crackles - Left lung, symmetrical. ABSENT: rales, r honchi, wheezes Cardiovascular exam: PRESENT: RRR. ABSENT: diastolic murmur, rubs, systolic murmur GI/Abdominal exam: PRESENT: normal bowel sounds, soft. ABSENT: distended, guarding, mass, organolmegaly, rebound, tenderness Neurological exam: PRESENT: alert, awake, oriented to person, oriented to place, CN II-XII grossly intact. ABSENT: motor sensory deficit Results Laboratory Results: 04/01/20 04:41 03/31/20 04:23 03/31/20 04/01/20 04/01/20 15:08 04:41 04:41 WBC 5.6 RBC 3.69 L Hgb 11.2 L Hct 33.2 L MCV 90 MCH 30.4 MCHC 33.8 RDW 15.4 H Plt Count 93 L Seg Neutrophils % 85.0 H Carbonic Acid HCO3/H2CO3 Ratio ABG pH ABG pCO2 ABG pO2 ABG HCO3 ABG O2 Saturation ABG Base Excess FiO2 Ferritin 327.00 H C-Reactive Protein 87.0 H Blood Type A POSITIVE Antibody Screen NEGATIVE 04/01/20 05:52 WBC RBC Hgb Hct MCV MCH MCHC RDW Plt Count Seg Neutrophils % Carbonic Acid 1.08 HCO3/H2CO3 Ratio 23:1 ABG pH 7.46 H ABG pCO2 36.0 ABG pO2 62.7 L ABG HCO3 25.1 H ABG O2 Saturation 93.3 L ABG Base Excess 1.6 FiO2 3L Ferritin C-Reactive Protein Blood Type Antibody Screen Impressions: Chest X-Ray 03/30/20 00:00 IMPRESSION: COPD. NO ACUTE RADIOGRAPHIC FINDING IN THE CHEST. Head CT 03/30/20 12:57 IMPRESSION: MILD CHRONIC CHANGES OF ATROPHY AND MICROVASCULAR ISCHEMIA. NO ACUTE PROCESS. EVIDENCE OF ACUTE STROKE: NO. Assessment and Plan - Diagnosis (1) COVID-19 Is this a current diagnosis for this admission?: Yes Plan: SPO2 WNL on 2 to 3 L nasal cannula. Afebrile. WBC WNL. COVID positive March 16, 2020. Presented with D-dimer 2.20 and elevated ferritin, CRP, LDH. CTA chest positive for moderate to severe confluent groundglass and subpatchy opacity predominantly at the periphery of bilateral lungs. Negative for PE. Continue provide supplemental oxygen as needed maintain saturations greater than 89%. Continue empiric broad-spectrum IV antibiotics. Continue ivermectin day 1/2 of ivermectin 12 mg Continue dexamethasone. Continue as needed nebulizer treatments. Continue zinc, vitamin D, vitamin C, and melatonin supplementation. Day 2/4 IV remdesivir. Hold Lovenox due to thrombocytopenia. Status post convalescent plasma transfusion. Pharmacy has been consulted for remdesivir. Encourage pulmonary toilet. Isolation precautions. (2) Acute respiratory failure with hypoxia Is this a current diagnosis for this admission?: Yes Plan: Secondary to #1. Management as above. (3) HLD (hyperlipidemia) Qualifiers: Hyperlipidemia type: unspecified Qualified Code(s): E78.5 - Hyperlipidemia, unspecified Is this a current diagnosis for this admission?: Yes Plan: Resume home meds. (4) HTN (hypertension) Qualifiers: Hypertension type: essential hypertension Qualified Code(s): I10 - Essential (primary) hypertension Is this a current diagnosis for this admission?: Yes Plan: Euvolemic. Normotensive. Resume home meds. Adjust meds as needed. (5) Thrombocytopenia Is this a current diagnosis for this admission?: Yes Plan: Noted to be hyperglycemic, most likely due to steroid receiving for COVID-19 infection. Hemoglobin A1c 5.7. Continue diabetic diet, Accu-Chek, hypoglycemia protocol. Continue basal, prandial and correctional insulin. Adjust dosage as needed. Resume home meds upon discharge. Outpatient PCP follow-up. (6) DM2 (diabetes mellitus, type 2) Is this a current diagnosis for this admission?: Yes Plan: Controlled. Hemoglobin A1c 5.7. Continue diabetic diet, Accu-Chek, hypoglycemia protocol. Continue basal, prandial and correctional insulin. Adjust dosage as needed. Resume home meds upon discharge. Outpatient PCP follow-up. (7) Left ventricular aneurysm Is this a current diagnosis for this admission?: Yes Plan: Denies any anginal symptoms. Patient's home medications are statins, beta-blockers and YESI inhibitors and she may have had an SC in the past however family and patient denies any history of CAD. 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 2D echo [place] mildly aneurysmal, apex akinetic, no convincing evidence for thrombus. As per my conversation with Dr. Howard Campbell electronic equipment maint tech this this is likely due to a previous myocardial infarction. Recommendation is to continue aspirin, statin and beta-blockers. She will need to follow-up with Dr. Howard Campbell electronic equipment maint tech as outpatient for cardiac MRI followed by possible left heart cath. Patient and family will be notified (8) CHF (congestive heart failure) Qualifiers: Heart failure type: systolic Heart failure chronicity: chronic Qualified Code(s): I50.22 - Chronic systolic (congestive) heart failure Is this a current diagnosis for this admission?: Yes Plan: Compensated. Euvolemic. 2D echo 03/31/2019 ejection fraction 45 to 50%. Patient denies any history of CAD, SC, alcohol abuse or any other history of cardiomyopathy. Continue cardiac diet, strict ins and outs, daily weight, beta-blockers, YESI. I have discussed this case with Dr. Howard emery electronic equipment maint tech who recommended outpatient follow-up with himself for possible CMR and left heart cath as outpatient. Patient and family will be notified. - Time Time Spent with patient: 35 or more minutes Anticipated Discharge Disposition: Home with Home Health Anticipated Discharge Timeframe: within 72 hours
--- NOTE | 2020-04-01 16:00 | PDOC CONSULTATION ---
Consultation Consult Date: 04/01/20 Attending physician:: MARKY CARLOS Provider Consulted: LOLY WALTER Consult reason:: Incidental finding of LV Apical aneurysm on CT Chest History of Present Illness Admission Date/PCP: 03/30/20 16:37 Patient complains of: Dyspnea History of Present Illness: EUNICE OAKES is a 79 year old female With the following active problems 1. COVID-19 viral pneumonia 2. Systemic hypertension 3. Diabetes mellitus She was found to be hypoxic. Work-up so far has demonstrated that she has a COVID-19 viral pneumonic process. This was confirmed on CT scan of the chest. There was no evidence of pulmonary embolism. Incidental finding of left ventricular apical aneurysm on CT scan of the chest which was confirmed on a transthoracic echocardiogram. In my interaction with the patient she does not report any prior history of coronary artery disease but does mention sporadic episodes of chest pain previously. Patient does appear to have some dementia so I am not sure how reliable this history is. Patient does not report some cigarette smoking. No familial illnesses are reported to me. She appears to be recuperating from her viral infection well and indicates that she is feeling better. At the present time there is no report of chest pain, PND, orthopnea. There is no report of palpitations dizziness or syncope. Past Medical History Cardiac Medical History: Reports: Myocardial Infarction, Hyperlipidema, Hypertension Denies: Congestive Heart Failure, DVT, Pulmonary Embolism Pulmonary Medical History: Denies: Asthma, Chronic Obstructive Pulmonary Disease (COPD) Neurological Medical History: Denies: Seizures Endocrine Medical History: Reports: Diabetes Mellitus Type 2 Denies: Diabetes Mellitus Type 1, Hyperthyroidism, Hypothyroidism Malignancy Medical History: Reports: Skin Cancer GI Medical History: Denies: Cirrhosis, Gastroesophageal Reflux Disease, Hepatitis Musculoskeltal Medical History: Reports: Arthritis, Gout Psychiatric Medical History: Denies: Depression Hematology: Reports: None Past Surgical History Past Surgical History: Reports: Orthopedic Surgery - Foot surgery, Vascular Surgery - Left lower extremity arterial stent implant. Social History Lives with: Family Smoking Status: Former Smoker Electronic Cigarette use?: No Frequency of Alcohol Use: None Hx Recreational Drug Use: No Drugs: None Hx Prescription Drug Abuse: No Family History Family History: None, CVA Parental Family History Reviewed: Yes - No familial illnesses reported Children Family History Reviewed: NA Sibling(s) Family History Reviewed.: NA Medication/Allergy Home Medications: Allopurinol [Zyloprim 300 mg Tablet] 300 mg PO DAILY 03/31/20 Amlodipine Besylate [Norvasc 5 mg Tablet] 5 mg PO DAILY 03/31/20 Enalapril Maleate [Vasotec 5 mg Tablet] 5 mg PO DAILY 03/31/20 Glimepiride [Amaryl 4 mg Tablet] 4 mg PO DAILY 03/31/20 Magnesium Oxide [Mag-Ox 400 mg Tablet] 400 mg PO DAILY 03/31/20 Metformin HCl [Glucophage] 1,000 mg PO BID 03/31/20 Metoprolol Succinate [Toprol Xl] 100 mg PO DAILY 03/31/20 Prasterone (Dhea) [Intrarosa] 6.5 mg VG QHS 03/31/20 Zinc Sulfate [Zinc-220 Capsule] 220 mg PO DAILY 03/31/20 Allergies/Adverse Reactions: No Known Allergies Allergy (Verified 07/04/15 20:48) Review of Systems Constitutional: PRESENT: as per HPI, fatigue, weakness Eyes: PRESENT: as per HPI Cardiovascular: PRESENT: chest pain Respiratory: PRESENT: cough, dyspnea Integumentary: ABSENT: as per HPI, diaphoresis, erythema, lesions, pruritus, rash, wounds, other Neurological: ABSENT: as per HPI, abnormal gait, abnormal movements, abnormal speech, confusion, convulsions, dizziness, focal weakness, frequent falls, lack of coordination, memory loss, numbness, paresthesias, restless legs, syncope, tingling, tremor(s), vertigo, weakness, other Allergic/Immunologic: ABSENT: as per HPI, seasonal rhinorrhea, other Physical Exam Vital Signs: Temp Pulse Resp BP Pulse Ox 98.0 F 92 20 123/60 93 04/01/20 11:21 04/01/20 11:21 04/01/20 11:21 04/01/20 11:21 04/01/20 11:21 Intake & Output 03/31/20 04/01/20 04/02/20 06:59 06:59 06:59 Intake Total 1432 Output Total 900 Balance 532 Weight 62.1 kg 62 kg General appearance: PRESENT: no acute distress, thin, well-developed, other - Frail. Head exam: PRESENT: atraumatic Eye exam: PRESENT: conjunctiva pale Respiratory exam: PRESENT: crackles, decreased breath sounds, symmetrical, unlabored Cardiovascular exam: PRESENT: RRR, +S1, +S2, systolic murmur Pulses: PRESENT: normal radial pulses GI/Abdominal exam: PRESENT: soft Rectal exam: PRESENT: deferred Neurological exam: PRESENT: alert, awake, oriented to person, oriented to place Psychiatric exam: PRESENT: appropriate affect Skin exam: PRESENT: dry, intact, pallor Results Laboratory Results: 04/01/20 04:41 03/31/20 04:23 03/31/20 04/01/20 04/01/20 15:08 04:41 04:41 WBC 5.6 RBC 3.69 L Hgb 11.2 L Hct 33.2 L MCV 90 MCH 30.4 MCHC 33.8 RDW 15.4 H Plt Count 93 L Seg Neutrophils % 85.0 H Carbonic Acid HCO3/H2CO3 Ratio ABG pH ABG pCO2 ABG pO2 ABG HCO3 ABG O2 Saturation ABG Base Excess FiO2 Ferritin 327.00 H C-Reactive Protein 87.0 H Blood Type A POSITIVE Antibody Screen NEGATIVE 04/01/20 05:52 WBC RBC Hgb Hct MCV MCH MCHC RDW Plt Count Seg Neutrophils % Carbonic Acid 1.08 HCO3/H2CO3 Ratio 23:1 ABG pH 7.46 H ABG pCO2 36.0 ABG pO2 62.7 L ABG HCO3 25.1 H ABG O2 Saturation 93.3 L ABG Base Excess 1.6 FiO2 3L Ferritin C-Reactive Protein Blood Type Antibody Screen EKG Comments: Twelve-lead EKG 03/30/2020. 1237. Independently viewed by me. Sinus rhythm, 88 bpm, left ventricular hypertrophy with repolarization abnormality QTC is 460 ms Transthoracic echocardiogram March 31, 2020. Left ventricular ejection fraction is mildly reduced and is estimated at 45 to 50%. The apex appears to be mildly aneurysmal. The entire apex appears to be akinetic. There is no significant wall motion involving other myocardial segments. RV is normal in size and function There is mild mitral regurgitation. There is no aortic valve stenosis. There is trace tricuspid regurgitation there is no pericardial effusion. Chest x-ray 03/30/2020 No acute radiographic findings in the chest. COPD is noted. Head CT 03/30/2020 Mild chronic changes of atrophy and microvascular ischemia no acute process. No CVA. CT scan of the chest abdomen 03/30/2020 Viral pneumonic process with groundglass opacities suggestive of COVID-19 pneumonia 3.6 x 3.4 cm cardiac aneurysm involving LV apex There is no pulmonary emboism Hepatic steatosis Coronary arterial calcification Renal artery calcification Gallbladder sludge Mitral valve appears to be calcified Impressions: Chest X-Ray 03/30/20 00:00 IMPRESSION: COPD. NO ACUTE RADIOGRAPHIC FINDING IN THE CHEST. Head CT 03/30/20 12:57 IMPRESSION: MILD CHRONIC CHANGES OF ATROPHY AND MICROVASCULAR ISCHEMIA. NO ACUTE PROCESS. EVIDENCE OF ACUTE STROKE: NO. Assessment & Plan - Diagnosis (1) CHF (congestive heart failure) Qualifiers: Heart failure type: systolic Heart failure chronicity: chronic Qualified Code(s): I50.22 - Chronic systolic (congestive) heart failure Is this a current diagnosis for this admission?: Yes Plan: There is evidence of mild LV dysfunction by transthoracic echocardiogram. The entire apex appears to be akinetic. Thus the overall left ventricular ejection fraction is mildly diminished even though the other wall segments appear to be participating. My exam patient appears to be euvolemic. I suspect patient's respiratory embarrassment is primarily due to viral pneumonic process rather than congestive heart failure Nevertheless it would be prudent to watch her fluid status and avoid any added salt Guideline directed therapy consisting of beta-refugio and YESI inhibitor should be considered when feasible (2) COVID-19 Is this a current diagnosis for this admission?: Yes Plan: Acute viral pneumonic process evident clinically and by CT images. Patient is being treated actively with standard therapy as indicated for COVID- 19 pneumonia. She appears to be improving. (3) Left ventricular aneurysm Is this a current diagnosis for this admission?: Yes Plan: Incidental finding of left ventricular apical aneurysm. The twelve-lead EKG does not show evidence of significant myocardial ischemia or prior myocardial infarction Echocardiogram shows apical akinesis with aneurysmal dilatation of the left ventricular apex. This is suggestive of prior distal LAD myocardial infarction. Ideally the work-up for this condition consist of additional cardiac imaging in the form of cardiac MRI to further delineate the aneurysm. This can determine further management including the need for cardiac catheterization. Since the patient is asymptomatic from this standpoint would prefer a conservative approach given dementia, frailty and complete absence of symptoms. Additional imaging and consideration of cardiac authorization can be pursued as an outpatient This finding suggest the presence of coronary artery disease as also indicated by the presence of coronary arterial calcification and calcification elsewhere. Therapy should just consist of aspirin as well as statin in addition to beta- blockers. (4) HLD (hyperlipidemia) Qualifiers: Hyperlipidemia type: unspecified Qualified Code(s): E78.5 - Hyperlipidemia, unspecified Is this a current diagnosis for this admission?: Yes Plan: Statin therapy (5) HTN (hypertension) Qualifiers: Hypertension type: essential hypertension Qualified Code(s): I10 - Essential (primary) hypertension Is this a current diagnosis for this admission?: Yes Plan: Beta-refugio to be included. - Notes Notes: In terms of medications present treatment consists of ivermectin and remdesivir in addition to dexamethasone for treatment of COVID-19 pneumonia From a cardiac standpoint would recommend aspirin 81 mg daily Toprol-XL 25 mg daily Simvastatin 40 mg daily articular and statin
[2020-04-01] MEDS: IVERMECTIN 3 MG TABLET PO SCH (17:27)
[2020-04-02 07:09] LABS: HEMATOCRIT 34.8 % (36.0-47.0); HEMOGLOBIN 11.8 g/dL (12.0-15.5); MEAN CORPUSCULAR HEMOGLOBIN 30.5 pg (27.0-33.4); MEAN CORPUSCULAR HGB CONC 33.8 g/dL (32.0-36.0); MEAN CORPUSCULAR VOLUME 90 fl (80-97); PLATELET COUNT 103 10^3/uL (150-450); RED BLOOD COUNT 3.86 10^6/uL (3.72-5.28); RED CELL DISTRIBUTION WIDTH 15.3 % (11.5-14.0); WHITE BLOOD COUNT 4.9 10^3/uL (4.0-10.5)
[2020-04-02 07:33] LABS: C-REACTIVE PROTEIN 40.6 mg/L (<10.0)
[2020-04-02] MEDS: INSULIN LISPRO 100 UNIT/ML 3 ML VIAL SUBCUT SCH ×4 (08:32→22:18)
[2020-04-02] MEDS: INSULIN GLARGINE,HUM.REC.ANLOG 1,000 UNIT/10 ML VIAL SUBCUT SCH (09:21)
[2020-04-02] MEDS: CEFTRIAXONE 1 GM/D5W RTU 1 GM/50 ML RTUPB IV SCH (09:21)
[2020-04-02] MEDS: DEXAMETHASONE 4 MG TABLET PO SCH (09:22)
[2020-04-02] MEDS: AZITHROMYCIN 250 MG TABLET PO SCH (09:22)
[2020-04-02] MEDS: CHOLECALCIFEROL (D3) 1,000 UNIT (25 MCG) TABLET PO SCH (09:22)
[2020-04-02] MEDS: DOCUSATE SODIUM 100 MG CAPSULE PO SCH (09:22)
[2020-04-02] MEDS: ZINC SULFATE 220 MG CAPSULE PO SCH (09:23)
[2020-04-02] MEDS: ASPIRIN 81 MG TABLET, ENT COATED PO SCH (09:23)
[2020-04-02] MEDS: ASCORBIC ACID 500 MG TABLET PO SCH ×2 (09:23→17:19)
--- NOTE | 2020-04-02 10:20 | PDOC PROGRESS REPORT ---
Subjective Date:: 04/02/20 Subjective:: As per admitting physician's note EUNICE OAKES is a 79 year old female with a past medical history significant for hypertension, hyperlipidemia, DM 2, and recent diagnosis of Covid who presented to the emergency department today with a complaint of increased confusion by family members. EMS found her to be hypoxic with an SPO2 of 86 on room air. She is not home O2 dependent. Family relates that the patient has some early dementia but that her current confusion is worse than baseline. Patient was diagnosed with COVID-19 at outside facility and discharged on azithromycin; completed the course 2 days ago. Evaluation in the emergency department revealed tachypnea (RR 28), and hypoxia on room air. Remaining vital signs are stable. CBC is unremarkable, D-dimer elevated 2.20, VBG shows respiratory alkalosis, chemistry notable for elevated glucose, hypomagnesium, and minimally elevated LFTs. CRP, LDH, ferritin pending. Urinalysis shows trace ketones. UDS and serum alcohol negative. Chest x-ray was notable for COPD, head CT with mild chronic changes of atrophy and microvascular ischemia. She was referred to the hospital service for further evaluation management of the above-stated complaints and findings. 04/01/2020. No acute events overnight. Patient comfortable resting in bed no apparent distress. Alert and oriented, cooperative with physical examination, denies any fever, chills, nausea, vomiting, diarrhea, constipation or any urinary symptoms. On supplemental oxygen 2 L nasal cannula. 04/02/2020. No acute events noted. Saw patient this morning resting in bed comfortably no apparent distress, denies any fever, chills, nausea, vomiting, diarrhea, constipation or any urinary symptoms, awake and alert, cooperative with physical examination, answering questions appropriately, very pleasant. Reason For Visit: ACUTE RESPIRATORY FAILURE W/HYPOXIA,COVID 19 Physical Exam Vital Signs: Temp Pulse Resp BP Pulse Ox 97.7 F 75 16 126/69 H 95 04/02/20 08:04 04/02/20 08:04 04/02/20 08:04 04/02/20 08:04 04/02/20 08:04 Intake & Output 04/01/20 04/02/20 04/03/20 06:59 06:59 06:59 Intake Total 1432 920 Output Total 900 350 Balance 532 570 Weight 62 kg 61.7 kg General appearance: PRESENT: no acute distress, well-developed, well-nourished Head exam: PRESENT: atraumatic, normocephalic Respiratory exam: PRESENT: accessory muscle use, crackles GI/Abdominal exam: PRESENT: normal bowel sounds, soft. ABSENT: distended, guarding, mass, organolmegaly, rebound, tenderness Extremities exam: PRESENT: full ROM. ABSENT: calf tenderness, clubbing, pedal edema Neurological exam: PRESENT: alert, awake, oriented to person, oriented to place, oriented to time, oriented to situation, CN II-XII grossly intact. ABSENT: motor sensory deficit Results Laboratory Results: 04/02/20 06:45 03/31/20 04:23 04/02/20 04/02/20 04/02/20 06:45 06:45 06:45 WBC 4.9 RBC 3.86 Hgb 11.8 L Hct 34.8 L MCV 90 MCH 30.5 MCHC 33.8 RDW 15.3 H Plt Count 103 L Ferritin 327.00 H Ammonia 9.1 C-Reactive Protein 40.6 H Impressions: Chest X-Ray 03/30/20 00:00 IMPRESSION: COPD. NO ACUTE RADIOGRAPHIC FINDING IN THE CHEST. Head CT 03/30/20 12:57 IMPRESSION: MILD CHRONIC CHANGES OF ATROPHY AND MICROVASCULAR ISCHEMIA. NO ACUTE PROCESS. EVIDENCE OF ACUTE STROKE: NO. Assessment and Plan - Diagnosis (1) COVID-19 Is this a current diagnosis for this admission?: Yes Plan: Saturating in the low 90s on 2 L nasal cannula. Afebrile. WBC WNL. COVID positive March 16, 2020. Presented with D-dimer 2.20 and elevated ferritin, CRP, LDH. CTA chest positive for moderate to severe confluent groundglass and subpatchy opacity predominantly at the periphery of bilateral lungs. Negative for PE. Provide supplemental oxygen as needed maintain saturations greater than 89%. Continue empiric broad-spectrum IV antibiotics. Continue ivermectin day 1/2 of ivermectin 12 mg Continue dexamethasone. Continue as needed nebulizer treatments. Continue zinc, vitamin D, vitamin C, and melatonin supplementation. Day 2/4 remdesivir. Status post convalescent plasma transfusion. Encourage pulmonary toilet. Isolation precautions. (2) Acute respiratory failure with hypoxia Is this a current diagnosis for this admission?: Yes Plan: Secondary to #1. Management as above. (3) Diabetes mellitus type 2 in obese Is this a current diagnosis for this admission?: Yes Plan: Controlled. Hemoglobin A1c 5.7. Probably overtreated, hemoglobin A1c goal should be 7 to 8% given her age and comorbidities. Continue diabetic diet, Accu-Chek, hypoglycemia protocol. Continue basal, prandial and correctional insulin. Adjust dosage as needed. Resume home meds upon discharge. Outpatient PCP follow-up. (4) HLD (hyperlipidemia) Qualifiers: Hyperlipidemia type: unspecified Qualified Code(s): E78.5 - Hyperlipidemia, unspecified Is this a current diagnosis for this admission?: Yes Plan: High intensity statins. (5) HTN (hypertension) Qualifiers: Hypertension type: essential hypertension Qualified Code(s): I10 - Essential (primary) hypertension Is this a current diagnosis for this admission?: Yes Plan: Euvolemic. Normotensive. Resume home meds. Adjust meds as needed. (6) Thrombocytopenia Is this a current diagnosis for this admission?: Yes Plan: History of thrombocytopenia. This is likely due to underlying cirrhosis complicated by superimposed COVID-19 pneumonia. No sign of acute bleeding. Fall precautions. Monitor for bleeding. Daily CMP. (7) DM2 (diabetes mellitus, type 2) Is this a current diagnosis for this admission?: Yes Plan: Controlled. Hemoglobin A1c 5.7. Continue diabetic diet, Accu-Chek, hypoglycemia protocol. Continue basal, prandial and correctional insulin. Adjust dosage as needed. Resume home meds upon discharge. Outpatient PCP follow-up. (8) Left ventricular aneurysm Is this a current diagnosis for this admission?: Yes Plan: Family and patient both deny any history of CAD or myocardial infarction. 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 I have discussed this case with Dr. Howard Campbell district court reporter who is recommending 2D echo before consulting cardiology or cardiothoracic surgery. Pending 2D echo. (9) CHF (congestive heart failure) Qualifiers: Heart failure type: systolic Heart failure chronicity: chronic Qualified Code(s): I50.22 - Chronic systolic (congestive) heart failure Is this a current diagnosis for this admission?: Yes Plan: Compensated. Euvolemic. 2D echo 03/31/2019 ejection fraction 45 to 50%. Patient denies any history of CAD, [place], alcohol abuse or any other history of cardiomyopathy. Continue cardiac diet, strict ins and outs, daily weight, beta-blockers, YESI. Cardiology consulted. Recommendations noted. Please refer to note. - Time Time Spent with patient: 25-34 minutes Anticipated Discharge Disposition: Home with Home Health Anticipated Discharge Timeframe: within 72 hours
[2020-04-02] MEDS: REMDESIVIR 100 MG in NORMAL SALINE 250 ML IV SCH (10:33)
[2020-04-02] MEDS: METOPROLOL SUCCINATE 25 MG TAB.SR.24H PO SCH (10:35)
[2020-04-02 10:53] LABS: APPEARANCE,URINE CLEAR; BILIRUBIN,URINE NEGATIVE (NEGATIVE); COLOR,URINE YELLOW; GLUCOSE, URINE 150 mg/dL (NEGATIVE); KETONES,URINE NEGATIVE (NEGATIVE); LEUKOCYTE ESTERASE,URINE NEGATIVE (NEGATIVE); NITRITE,URINE NEGATIVE (NEGATIVE); PROTEIN,URINE 30 mg/dL (NEGATIVE); URINE SPECIFIC GRAVITY 1.023
[2020-04-02] MEDS: ATORVASTATIN CALCIUM 40 MG TABLET PO SCH (22:18)
[2020-04-03 05:12] LABS: ABSOLUTE LYMPHOCYTES (AUTO) 0.5 10^3/uL (0.5-4.7); ABSOLUTE MONOCYTES (AUTO) 0.3 10^3/uL (0.1-1.4); ABSOLUTE NEUT (AUTO) 3.8 10^3/uL (1.7-8.2); BASOPHILS % (AUTO) 0.2 % (0-2); HEMATOCRIT 35.9 % (36.0-47.0); HEMOGLOBIN 12.1 g/dL (12.0-15.5); LYMPHOCYTES % (AUTO) 11.3 % (13-45); MEAN CORPUSCULAR HEMOGLOBIN 30.4 pg (27.0-33.4); MEAN CORPUSCULAR HGB CONC 33.7 g/dL (32.0-36.0); MEAN CORPUSCULAR VOLUME 90 fl (80-97); MONOCYTES % (AUTO) 7.1 % (3-13); PLATELET COUNT 104 10^3/uL (150-450); RED BLOOD COUNT 3.98 10^6/uL (3.72-5.28); RED CELL DISTRIBUTION WIDTH 15.5 % (11.5-14.0); SEGMENTED NEUTROPHILS % (AUTO) 81.4 % (42-78); TOTAL CELLS COUNTED % (AUTO) 100 %; WHITE BLOOD COUNT 4.7 10^3/uL (4.0-10.5)
[2020-04-03 05:32] LABS: INTERNATIONAL RATION (INR) 1.42; PROTHROMBIN TIME 17.5 SEC (11.4-15.4)
[2020-04-03 05:33] LABS: FIBRINOGEN 321 mg/dL (209-497)
[2020-04-03 05:43] LABS: C-REACTIVE PROTEIN 22.2 mg/L (<10.0)
[2020-04-03 05:52] LABS: D-DIMER 15.01 ug/mL (0.00-0.50)
[2020-04-03] MEDS: INSULIN LISPRO 100 UNIT/ML 3 ML VIAL SUBCUT SCH ×4 (09:31→21:10)
[2020-04-03] MEDS: CHOLECALCIFEROL (D3) 1,000 UNIT (25 MCG) TABLET PO SCH (10:56)
[2020-04-03] MEDS: CEFTRIAXONE 1 GM/D5W RTU 1 GM/50 ML RTUPB IV SCH (10:56)
[2020-04-03] MEDS: DOCUSATE SODIUM 100 MG CAPSULE PO SCH (10:56)
[2020-04-03] MEDS: DEXAMETHASONE 4 MG TABLET PO SCH (10:56)
[2020-04-03] MEDS: AZITHROMYCIN 250 MG TABLET PO SCH (10:56)
[2020-04-03] MEDS: ASPIRIN 81 MG TABLET, ENT COATED PO SCH (10:57)
[2020-04-03] MEDS: ASCORBIC ACID 500 MG TABLET PO SCH ×2 (10:57→17:10)
[2020-04-03] MEDS: INSULIN GLARGINE,HUM.REC.ANLOG 1,000 UNIT/10 ML VIAL SUBCUT SCH (10:57)
[2020-04-03] MEDS: METOPROLOL SUCCINATE 25 MG TAB.SR.24H PO SCH (10:57)
[2020-04-03] MEDS: ZINC SULFATE 220 MG CAPSULE PO SCH (10:58)
--- NOTE | 2020-04-03 11:28 | PDOC PROGRESS REPORT ---
Subjective Date:: 04/03/20 Subjective:: As per admitting physician's note EUNICE OAKES is a 79 year old female with a past medical history significant for hypertension, hyperlipidemia, DM 2, and recent diagnosis of Covid who presented to the emergency department today with a complaint of increased confusion by family members. EMS found her to be hypoxic with an SPO2 of 86 on room air. She is not home O2 dependent. Family relates that the patient has some early dementia but that her current confusion is worse than baseline. Patient was diagnosed with COVID-19 at outside facility and discharged on azithromycin; completed the course 2 days ago. Evaluation in the emergency department revealed tachypnea (RR 28), and hypoxia on room air. Remaining vital signs are stable. CBC is unremarkable, D-dimer elevated 2.20, VBG shows respiratory alkalosis, chemistry notable for elevated glucose, hypomagnesium, and minimally elevated LFTs. CRP, LDH, ferritin pending. Urinalysis shows trace ketones. UDS and serum alcohol negative. Chest x-ray was notable for COPD, head CT with mild chronic changes of atrophy and microvascular ischemia. She was referred to the hospital service for further evaluation management of the above-stated complaints and findings. 04/01/2020. No acute events overnight. Patient comfortable resting in bed no apparent distress. Alert and oriented, cooperative with physical examination, denies any fever, chills, nausea, vomiting, diarrhea, constipation or any urinary symptoms. On supplemental oxygen 2 L nasal cannula. 04/02/2020. No acute events noted. Saw patient this morning resting in bed comfortably no apparent distress, denies any fever, chills, nausea, vomiting, diarrhea, constipation or any urinary symptoms, awake and alert, cooperative with physical examination, answering questions appropriately, very pleasant. 04/03/2020. No acute events overnight. Saw patient this morning, resting in bed, on room air, no apparent distress, denies any fever, chills, nausea, vomiting, diarrhea, constipation or any urinary symptoms. Asking when she can go home. Possible discharge home tomorrow after she received her first dose of IV remdesivir. Reason For Visit: ACUTE RESPIRATORY FAILURE W/HYPOXIA,COVID 19 Physical Exam Vital Signs: Temp Pulse Resp BP Pulse Ox 98.0 F 77 18 124/49 L 93 04/03/20 08:39 04/03/20 08:39 04/03/20 08:39 04/03/20 08:39 04/03/20 08:39 Intake & Output 04/02/20 04/03/20 04/04/20 06:59 06:59 06:59 Intake Total 920 660 Output Total 350 Balance 570 660 Weight 61.7 kg 62.4 kg General appearance: PRESENT: no acute distress, well-developed, well-nourished Head exam: PRESENT: atraumatic, normocephalic Neck exam: ABSENT: carotid bruit, JVD, lymphadenopathy, thyromegaly Respiratory exam: PRESENT: clear to auscultation marissa, crackles - Right lung. ABSENT: rales, rhonchi, wheezes Cardiovascular exam: PRESENT: RRR. ABSENT: diastolic murmur, rubs, systolic murmur Neurological exam: PRESENT: alert, awake, oriented to person, oriented to place, oriented to time, oriented to situation, CN II-XII grossly intact. ABSENT: motor sensory deficit Results Laboratory Results: 04/03/20 04:41 03/31/20 04:23 04/03/20 04/03/20 04:41 04:41 WBC 4.7 RBC 3.98 Hgb 12.1 Hct 35.9 L MCV 90 MCH 30.4 MCHC 33.7 RDW 15.5 H Plt Count 104 L Seg Neutrophils % 81.4 H Ferritin 281.00 H C-Reactive Protein 22.2 H 03/31/20 14:13 Throat Throat Culture - Final NORMAL YARA Impressions: Chest X-Ray 03/30/20 00:00 IMPRESSION: COPD. NO ACUTE RADIOGRAPHIC FINDING IN THE CHEST. Head CT 03/30/20 12:57 IMPRESSION: MILD CHRONIC CHANGES OF ATROPHY AND MICROVASCULAR ISCHEMIA. NO ACUTE PROCESS. EVIDENCE OF ACUTE STROKE: NO. Assessment and Plan - Diagnosis (1) COVID-19 Is this a current diagnosis for this admission?: Yes Plan: Saturating in the low 90s on 2 L nasal cannula. Afebrile. WBC WNL. COVID positive March 16, 2020. Presented with D-dimer 2.20 and elevated ferritin, CRP, LDH. CTA chest positive for moderate to severe confluent groundglass and subpatchy opacity predominantly at the periphery of bilateral lungs. Negative for PE. Provide supplemental oxygen as needed maintain saturations greater than 89%. Continue empiric broad-spectrum IV antibiotics. Continue ivermectin day 1/2 of ivermectin 12 mg Continue dexamethasone. Continue as needed nebulizer treatments. Continue zinc, vitamin D, vitamin C, and melatonin supplementation. Day 3/4 remdesivir. Status post convalescent plasma transfusion. Encourage pulmonary toilet. Isolation precautions. (2) Acute respiratory failure with hypoxia Is this a current diagnosis for this admission?: Yes Plan: Secondary to #1. Management as above. (3) HLD (hyperlipidemia) Qualifiers: Hyperlipidemia type: unspecified Qualified Code(s): E78.5 - Hyperlipidemia, unspecified Is this a current diagnosis for this admission?: Yes Plan: High intensity statins. (4) HTN (hypertension) Qualifiers: Hypertension type: essential hypertension Qualified Code(s): I10 - Essential (primary) hypertension Is this a current diagnosis for this admission?: Yes Plan: Euvolemic. Normotensive. Resume home meds. Adjust meds as needed. (5) Thrombocytopenia Is this a current diagnosis for this admission?: Yes Plan: History of thrombocytopenia. This is likely due to underlying cirrhosis complicated by superimposed COVID-19 pneumonia. No sign of acute bleeding. Fall precautions. Monitor for bleeding. Daily CMP. (6) DM2 (diabetes mellitus, type 2) Is this a current diagnosis for this admission?: Yes Plan: Controlled. Hemoglobin A1c 5.7. Continue diabetic diet, Accu-Chek, hypoglycemia protocol. Continue basal, prandial and correctional insulin. Adjust dosage as needed. Resume home meds upon discharge. Outpatient PCP follow-up. (7) Left ventricular aneurysm Is this a current diagnosis for this admission?: Yes Plan: Family and patient both deny any history of CAD or myocardial infarction. 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 I have discussed this case with Dr. Howard Campbell appeals nurse who is recommending 2D echo before consulting cardiology or cardiothoracic surgery. Pending 2D echo. (8) CHF (congestive heart failure) Qualifiers: Heart failure type: systolic Heart failure chronicity: chronic Qualified Code(s): I50.22 - Chronic systolic (congestive) heart failure Is this a current diagnosis for this admission?: Yes Plan: Compensated. Euvolemic. 2D echo 03/31/2019 ejection fraction 45 to 50%. Patient denies any history of CAD, [place], alcohol abuse or any other history of cardiomyopathy. Continue cardiac diet, strict ins and outs, daily weight, beta-blockers, YESI. Cardiology consulted. Recommendations noted. Please refer to note. - Time Time Spent with patient: 25-34 minutes Anticipated Discharge Disposition: Home, Self Care Anticipated Discharge Timeframe: within 24 hours
[2020-04-03] MEDS: REMDESIVIR 100 MG in NORMAL SALINE 250 ML IV SCH (12:11)
[2020-04-03] MEDS: ENALAPRIL MALEATE 2.5 MG TABLET PO SCH (12:11)
[2020-04-03] MEDS: ATORVASTATIN CALCIUM 40 MG TABLET PO SCH (21:10)
[2020-04-04 05:19] LABS: HEMATOCRIT 37.6 % (36.0-47.0); HEMOGLOBIN 12.5 g/dL (12.0-15.5); MEAN CORPUSCULAR HGB CONC 33.3 g/dL (32.0-36.0); MEAN CORPUSCULAR VOLUME 90 fl (80-97); PLATELET COUNT 101 10^3/uL (150-450); RED BLOOD COUNT 4.17 10^6/uL (3.72-5.28); RED CELL DISTRIBUTION WIDTH 15.2 % (11.5-14.0); WHITE BLOOD COUNT 5.2 10^3/uL (4.0-10.5)
[2020-04-04 05:50] LABS: C-REACTIVE PROTEIN 26.7 mg/L (<10.0)
[2020-04-04] MEDS: INSULIN LISPRO 100 UNIT/ML 3 ML VIAL SUBCUT SCH ×2 (08:05→12:11)
[2020-04-04 09:02] LABS: APPEARANCE,URINE CLEAR; BILIRUBIN,URINE NEGATIVE (NEGATIVE); COLOR,URINE YELLOW; GLUCOSE, URINE 150 mg/dL (NEGATIVE); KETONES,URINE NEGATIVE (NEGATIVE); LEUKOCYTE ESTERASE,URINE NEGATIVE (NEGATIVE); NITRITE,URINE NEGATIVE (NEGATIVE); PROTEIN,URINE NEGATIVE (NEGATIVE); URINE SPECIFIC GRAVITY 1.014; UROBILINOGEN,URINE NEGATIVE mg/dL (<2.0)
[2020-04-04] MEDS: DEXAMETHASONE 4 MG TABLET PO SCH (10:06)
[2020-04-04] MEDS: CEFTRIAXONE 1 GM/D5W RTU 1 GM/50 ML RTUPB IV SCH (10:06)
[2020-04-04] MEDS: CHOLECALCIFEROL (D3) 1,000 UNIT (25 MCG) TABLET PO SCH (10:06)
[2020-04-04] MEDS: INSULIN GLARGINE,HUM.REC.ANLOG 1,000 UNIT/10 ML VIAL SUBCUT SCH (10:07)
[2020-04-04] MEDS: METOPROLOL SUCCINATE 25 MG TAB.SR.24H PO SCH (10:07)
[2020-04-04] MEDS: AZITHROMYCIN 250 MG TABLET PO SCH (10:07)
[2020-04-04] MEDS: ASCORBIC ACID 500 MG TABLET PO SCH (10:07)
[2020-04-04] MEDS: ASPIRIN 81 MG TABLET, ENT COATED PO SCH (10:07)
[2020-04-04] MEDS: DOCUSATE SODIUM 100 MG CAPSULE PO SCH (10:07)
[2020-04-04] MEDS: ENALAPRIL MALEATE 2.5 MG TABLET PO SCH (10:08)
[2020-04-04] MEDS: REMDESIVIR 100 MG in NORMAL SALINE 250 ML IV SCH (10:08)
[2020-04-04] MEDS: ZINC SULFATE 220 MG CAPSULE PO SCH (10:42)
[2020-04-04 13:16] VITALS: BP 124/69
--- NOTE | 2020-04-06 08:50 | PDOC DISCHARGE SUMMARY ---
Impression - Admit/DC Date/PCP Admission Date/Primary Care Provider: 03/30/20 16:37 Discharge Date: 04/04/20 - Discharge Diagnosis (1) COVID-19 Is this a current diagnosis for this admission?: Yes (2) Acute respiratory failure with hypoxia Is this a current diagnosis for this admission?: Yes (3) HLD (hyperlipidemia) Is this a current diagnosis for this admission?: Yes (4) HTN (hypertension) Is this a current diagnosis for this admission?: Yes (5) Thrombocytopenia Is this a current diagnosis for this admission?: Yes (6) DM2 (diabetes mellitus, type 2) Is this a current diagnosis for this admission?: Yes (7) Left ventricular aneurysm Is this a current diagnosis for this admission?: Yes (8) CHF (congestive heart failure) Is this a current diagnosis for this admission?: Yes - Additional Information Discharge Diet: Diabetic Discharge Activity: Activity As Tolerated Referrals: RANGEL ALEXANDRE MD [ACTIVE STAFF] - 04/21/20 3:15 pm (Incidental finding on CTA chest, 1 cm sclerotic lesion of the T3 vertebral body. Please evaluate for possible malignancy. ) LOLY WALTER MD [ACTIVE STAFF] - 04/22/20 3:00 pm Home Medications: Allopurinol [Zyloprim 300 mg Tablet] 300 mg PO DAILY 03/31/20 Amlodipine Besylate [Norvasc 5 mg Tablet] 5 mg PO DAILY 03/31/20 Enalapril Maleate [Vasotec 5 mg Tablet] 5 mg PO DAILY 03/31/20 Magnesium Oxide [Mag-Ox 400 mg Tablet] 400 mg PO DAILY 03/31/20 Metformin HCl [Glucophage] 1,000 mg PO BID 03/31/20 Metoprolol Succinate [Toprol Xl] 100 mg PO DAILY 03/31/20 Prasterone (Dhea) [Intrarosa] 6.5 mg VG QHS 03/31/20 Zinc Sulfate [Zinc-220 Capsule] 220 mg PO DAILY 03/31/20 History of Present Illiness History of Present Illness: As per admitting physician's note EUNICE OAKES is a 79 year old female with a past medical history significant for hypertension, hyperlipidemia, DM 2, and recent diagnosis of Covid who presented to the emergency department today with a complaint of increased confusion by family members. EMS found her to be hypoxic with an SPO2 of 86 on room air. She is not home O2 dependent. Family relates that the patient has some early dementia but that her current confusion is worse than baseline. Patient was diagnosed with COVID-19 at outside facility and discharged on azithromycin; completed the course 2 days ago. Evaluation in the emergency department revealed tachypnea (RR 28), and hypoxia on room air. Remaining vital signs are stable. CBC is unremarkable, D-dimer elevated 2.20, VBG shows respiratory alkalosis, chemistry notable for elevated glucose, hypomagnesium, and minimally elevated LFTs. CRP, LDH, ferritin pending. Urinalysis shows trace ketones. UDS and serum alcohol negative. Chest x-ray was notable for COPD, head CT with mild chronic changes of atrophy and microvascular ischemia. She was referred to the hospital service for further evaluation management of the above-stated complaints and findings. Hospital Course Hospital Course: (1) COVID-19 Afebrile. WBC WNL. Saturating WNL on RA. COVID positive March 16, 2020. Presented with D-dimer 2.20 and elevated ferritin, CRP, LDH. CTA chest positive for moderate to severe confluent groundglass and subpatchy opacity predominantly at the periphery of bilateral lungs. Negative for PE. Received 2 doses of ivermectin. Received dexamethasone. Received 4 doses of remdesivir. Received convalescent plasma transfusion. Received empiric IV antibiotics. Of note there was an incidental finding of a small sclerotic lesion on T2 vertebrae , a follow-up was made for patient with Dr. Alexandre oncologist for further work-up. Family and patient were both notified. (2) Acute respiratory failure with hypoxia Secondary to #1. Management as above. (3) HLD (hyperlipidemia) High intensity statins. (4) HTN (hypertension) Euvolemic. Normotensive. Resumed home meds. Adjust meds as needed. (5) Thrombocytopenia History of thrombocytopenia. This is likely due to underlying cirrhosis complicated by superimposed COVID-19 pneumonia. No sign of acute bleeding. Fall precautions. Monitor for bleeding. Daily CMP. (6) DM2 (diabetes mellitus, type 2) Controlled. Hemoglobin A1c 5.7. Continue diabetic diet, Accu-Chek, hypoglycemia protocol. Continue basal, prandial and correctional insulin. Adjust dosage as needed. Resume home meds upon discharge. Outpatient PCP follow-up. (7) Left ventricular aneurysm Family and patient both deny any history of CAD or myocardial infarction. 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 Dr. Loly Walter sourcing intern was consulted, follow-up appointment was obtained for further work-up. Please refer to note. (8) CHF (congestive heart failure) Compensated. Euvolemic. 2D echo 03/31/2019 ejection fraction 45 to 50%. Patient denies any history of CAD, NV, alcohol abuse or any other history of cardiomyopathy. Continued cardiac diet, strict ins and outs, daily weight, beta-blockers, YESI. Cardiology consulted. Recommendations noted. Please refer to note. Physical Exam Vital Signs: Temp Pulse Resp BP Pulse Ox 97.4 F 83 16 132/56 H 92 04/04/20 12:39 04/04/20 12:39 04/04/20 12:39 04/04/20 12:39 04/04/20 12:39 Intake & Output 04/05/20 04/06/20 04/07/20 06:59 06:59 06:59 Intake Total 800 Balance 800 General appearance: PRESENT: no acute distress, well-developed, well-nourished Head exam: PRESENT: atraumatic, normocephalic Respiratory exam: PRESENT: clear to auscultation marissa. ABSENT: rales, rhonchi, wheezes Cardiovascular exam: PRESENT: RRR. ABSENT: diastolic murmur, rubs, systolic murmur GI/Abdominal exam: PRESENT: normal bowel sounds, soft. ABSENT: distended, guarding, mass, organolmegaly, rebound, tenderness Neurological exam: PRESENT: alert, awake, oriented to person, oriented to place, oriented to time, oriented to situation, CN II-XII grossly intact. ABSENT: motor sensory deficit Skin exam: PRESENT: dry, intact, warm. ABSENT: cyanosis, rash Results Laboratory Results: WBC 5.2 10^3/uL (4.0-10.5) 04/04/20 04:53 RBC 4.17 10^6/uL (3.72-5.28) 04/04/20 04:53 Hgb 12.5 g/dL (12.0-15.5) 04/04/20 04:53 Hct 37.6 % (36.0-47.0) 04/04/20 04:53 MCV 90 fl (80-97) 04/04/20 04:53 MCH 30.0 pg (27.0-33.4) 04/04/20 04:53 MCHC 33.3 g/dL (32.0-36.0) 04/04/20 04:53 RDW 15.2 % (11.5-14.0) H 04/04/20 04:53 Plt Count 101 10^3/uL (150-450) L 04/04/20 04:53 Lymph % (Auto) 11.3 % (13-45) L 04/03/20 04:41 Wilkinson % (Auto) 7.1 % (3-13) 04/03/20 04:41 Eos % (Auto) 0.0 % (0-6) 04/03/20 04:41 Baso % (Auto) 0.2 % (0-2) 04/03/20 04:41 Absolute Neuts (auto) 3.8 10^3/uL (1.7-8.2) 04/03/20 04:41 Absolute Lymphs (auto) 0.5 10^3/uL (0.5-4.7) 04/03/20 04:41 Absolute Monos (auto) 0.3 10^3/uL (0.1-1.4) 04/03/20 04:41 Absolute Eos (auto) 0.0 10^3/uL (0.0-0.6) 04/03/20 04:41 Absolute Basos (auto) 0.0 10^3/uL (0.0-0.2) 04/03/20 04:41 Seg Neutrophils % 81.4 % (42-78) H 04/03/20 04:41 PT 17.5 SEC (11.4-15.4) H 04/03/20 04:41 INR 1.42 04/03/20 04:41 Fibrinogen 321 mg/dL (209-497) 04/03/20 04:41 D-Dimer 15.01 ug/mL (0.00-0.50) H 04/03/20 04:41 Carbonic Acid 1.08 mmol/L (1.05-1.35) 04/01/20 05:52 HCO3/H2CO3 Ratio 23:1 04/01/20 05:52 ABG pH 7.46 (7.35-7.45) H 04/01/20 05:52 ABG pCO2 36.0 mmHg (35-45) 04/01/20 05:52 ABG pO2 62.7 mmHg (80-100) L 04/01/20 05:52 ABG HCO3 25.1 mmol/L (20-24) H 04/01/20 05:52 ABG Total CO2 26.2 mmol/L (21-25) H 04/01/20 05:52 ABG O2 Saturation 93.3 % (94-98) L 04/01/20 05:52 ABG Base Excess 1.6 mmol/L 04/01/20 05:52 VBG pH 7.48 (7.30-7.42) H 03/30/20 12:18 VBG pCO2 30.2 mmHg (35-63) L 03/30/20 12:18 VBG HCO3 22.2 mmol/L (20-32) 03/30/20 12:18 VBG Base Excess -0.3 mmol/L 03/30/20 12:18 FiO2 3L 04/01/20 05:52 Sodium 135.4 mmol/L (137-145) L 03/31/20 04:23 Potassium 4.8 mmol/L (3.6-5.0) 03/31/20 04:23 Chloride 104 mmol/L (98-107) 03/31/20 04:23 Carbon Dioxide 21 mmol/L (22-30) L 03/31/20 04:23 Anion Gap 10 (5-19) 03/31/20 04:23 BUN 17 mg/dL (7-20) 03/31/20 04:23 Creatinine 0.63 mg/dL (0.52-1.25) 03/31/20 04:23 Est GFR ( Amer) > 60 (>60) 03/31/20 04:23 Est GFR (MDRD) Non-Af > 60 (>60) 03/31/20 04:23 Glucose 224 mg/dL (75-110) H 03/31/20 04:23 POC Glucose 188 mg/dL (70-110) H 04/04/20 11:59 Hemoglobin A1c % 5.7 % (4.7-6.0) 03/31/20 04:23 Lactic Acid 2.1 mmol/L (0.7-2.1) 03/30/20 12:18 Calcium 9.3 mg/dL (8.4-10.2) 03/31/20 04:23 Magnesium 1.5 mg/dL (1.6-2.3) L 03/30/20 12:18 Ferritin 292.00 ng/mL (11.1-264.0) H 04/04/20 04:53 Total Bilirubin 1.1 mg/dL (0.2-1.3) 03/30/20 12:18 Direct Bilirubin 0.5 mg/dL (0.0-0.4) H 03/30/20 12:18 Neonat Total Bilirubin Not Reportable 03/30/20 12:18 Neonat Direct Bilirubin Not Reportable 03/30/20 12:18 Neonat Indirect Bili Not Reportable 03/30/20 12:18 AST 72 U/L (14-36) H 03/30/20 12:18 ALT 38 U/L (<35) H 03/30/20 12:18 Alkaline Phosphatase 77 U/L (38-126) 03/30/20 12:18 Ammonia 9.1 umol/L (9-33) 04/02/20 06:45 Lactate Dehydrogenase 365 U/L (120-246) H 03/30/20 19:15 C-Reactive Protein 26.7 mg/L (<10.0) H 04/04/20 04:53 Total Protein 6.8 g/dL (6.3-8.2) 03/30/20 12:18 Albumin 3.1 g/dL (3.5-5.0) L 03/30/20 12:18 Urine Color YELLOW 04/04/20 08:17 Urine Appearance CLEAR 04/04/20 08:17 Urine pH 6.0 (5.0-9.0) 04/04/20 08:17 Ur Specific [place] 1.014 04/04/20 08:17 Urine Protein NEGATIVE mg/dL (NEGATIVE) 04/04/20 08:17 Urine Glucose (UA) 150 mg/dL (NEGATIVE) H 04/04/20 08:17 Urine Ketones NEGATIVE mg/dL (NEGATIVE) 04/04/20 08:17 Urine Blood NEGATIVE (NEGATIVE) 04/04/20 08:17 Urine Nitrite NEGATIVE (NEGATIVE) 04/04/20 08:17 Urine Nitrite (Reflex) NEGATIVE (NEGATIVE) 03/30/20 12:50 Urine Bilirubin NEGATIVE (NEGATIVE) 04/04/20 08:17 Urine Urobilinogen NEGATIVE mg/dL (<2.0) 04/04/20 08:17 Ur Leukocyte Esterase NEGATIVE (NEGATIVE) 04/04/20 08:17 Leukocyte Esterase Rfl NEGATIVE (NEGATIVE) 03/30/20 12:50 Urine WBC (Auto) 1 /HPF 04/04/20 08:17 Urine RBC (Auto) 0 /HPF 04/02/20 09:40 Urine WBC (Reflex) 1 /HPF 03/30/20 12:50 Squamous Epi Cells Auto 3 /HPF 04/04/20 08:17 Urine Mucus (Auto) RARE /LPF 04/04/20 08:17 Urine Ascorbic Acid 40 (NEGATIVE) H 04/04/20 08:17 Urine Opiates Screen NEGATIVE 03/30/20 12:50 Urine Methadone Screen NEGATIVE 03/30/20 12:50 Ur Barbiturates Screen NEGATIVE 03/30/20 12:50 Ur Phencyclidine Scrn NEGATIVE 03/30/20 12:50 Ur Amphetamines Screen NEGATIVE 03/30/20 12:50 U Benzodiazepines Scrn NEGATIVE 03/30/20 12:50 Urine Cocaine Screen NEGATIVE 03/30/20 12:50 U Marijuana (THC) Screen NEGATIVE 03/30/20 12:50 Serum Alcohol < 10 mg/dL (NONE DETECTED) 03/30/20 12:18 COVID-19 Source Cancelled 03/30/20 12:18 COVID-19 ([facility]) Cancelled 03/30/20 12:18 Influenza A (Rapid) NEGATIVE (NEGATIVE) 03/31/20 14:13 Influenza B (Rapid) NEGATIVE (NEGATIVE) 03/31/20 14:13 Group A Strep Rapid NEGATIVE (NEGATIVE) 03/31/20 14:15 Blood Type A POSITIVE 03/31/20 15:08 Antibody Screen NEGATIVE 03/31/20 15:08 Impressions: Chest X-Ray 03/30/20 00:00 IMPRESSION: COPD. NO ACUTE RADIOGRAPHIC FINDING IN THE CHEST. Head CT 03/30/20 12:57 IMPRESSION: MILD CHRONIC CHANGES OF ATROPHY AND MICROVASCULAR ISCHEMIA. NO ACUTE PROCESS. EVIDENCE OF ACUTE STROKE: NO. Stroke Is this a Stroke Patient?: No Acute Heart Failure Is this a Heart Failure Patient?: No
== END 2020-04-04 14:30 | disposition home or self-care (01) | DRG 177 ==
LOC: ER 12:08 → EH 16:37 → 3W 18:35
PROVIDERS: ADMIT Internal Medicine; ATTEND Internal Medicine
PROC: XW13325 Transfusion of Convalescent Plasma (Nonautologous) into Peripheral Vein, Percutaneous Approach, New Technology Group 5 (ICD-10-PCS; principal; 2020-03-31)
PROC: XW033E5 Introduction of Remdesivir Anti-infective into Peripheral Vein, Percutaneous Approach, New Technology Group 5 (ICD-10-PCS; 2020-03-31)
DX: U07.1 COVID-19 (principal); J96.01 Acute respiratory failure with hypoxia; I50.22 Chronic systolic (congestive) heart failure; I25.3 Aneurysm of heart; I11.0 Hypertensive heart disease with heart failure; E78.5 Hyperlipidemia, unspecified; M19.90 Unspecified osteoarthritis, unspecified site; D69.59 Other secondary thrombocytopenia; E11.65 Type 2 diabetes mellitus with hyperglycemia; K74.60 Unspecified cirrhosis of liver; Z82.3 Family history of stroke; Z79.84 Long term (current) use of oral hypoglycemic drugs; Z85.828 Personal history of other malignant neoplasm of skin
CPT/HCPCS: 36415; 36430; 70450; 71045; 71275; 80048; 80053; 80307; 81001; 82140; 82728; 82803; 82962; 83036; 83605; 83615; 83735; 85025; 85027; 85379; 85384; 85610; 86140; 86850; 86900; 86901; 87040; 87070; 87804; 87880; 93005; 93010; 93306; 94799; 99285; G0378; J0456; J0696; J1650; J1815; J2920; J3490; J7050; J7060; J8540

== ENCOUNTER → 2020-04-24 | Outpatient (CLI) | payer MEDICARE, OTHER | LOC: RAD 14:58 | PROVIDERS: ATTEND Internal Medicine | DX: Z53.9 Procedure and treatment not carried out, unspecified reason (principal) ==

== ENCOUNTER → 2020-04-25 | Outpatient (CLI) | payer MEDICARE, OTHER ==
--- NOTE | 2020-04-24 16:28 | RADIOLOGY REPORT (SQ) ---
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 TECHNIQUE: Images of the axial and proximal appendicular skeleton are obtained, along with lateral s kull and frontal chest films. LIMITATIONS: None. FINDINGS: AP CHEST: Interval development of patchy mixed interstitial and airspace opacities demonst rating a predominantly peripheral distribution ; this is not retrospectively present on 03/30/2020 radi ograph. No acute osseous findings. LATERAL SKULL: No worrisome bone lesions. AP BOTH HUMERI: No worrisome bone lesions. 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 TWO-VIEW LUMBAR SPINE: No worrisome bone lesions. Degenerative changes are present. Grade 1 anterol isthesis of L4 relative to L5 on the basis of degenerative changes. TWO-VIEW THORACIC SPINE: No worrisome bone lesions. Degenerative changes are present. AP PELVIS: No worrisome bone lesions. AP BOTH FEMURS: No worrisome bone lesions. OTHER: No other significant finding. IMPRESSION: 1. No worrisome bone lesions. 2. Short interval development of patchy mixed interstitial and airspace opacities in a predominantly peripheral distribution. In the appropriate clinical setting, these findings may represent multi lo bar pneumonia. TECHNICAL DOCUMENTATION: JOB ID: [id number] [employer]- All Rights Reserved Reading location - IP/workstation name: [email or web address]
--- NOTE | 2020-04-25 12:52 | RADIOLOGY REPORT (SQ) ---
EXAM DESCRIPTION: NM WHOLE BODY BONE SCAN IMAGES COMPLETED DATE/TIME: 04/25/2020 12:02 pm REASON FOR STUDY: MALIGNANT NEOPLASM OF BONE AND ARTICULAR CARTILAGE, UNSP C41.9 MALIGNANT NEOPLASM OF BONE AND ARTICULAR CARTILAGE, UN D64.9 ANEMIA, UNSPECIFIED COMPARISON: Various imaging studies. RADIONUCLIDE AND DOSE: 20 millicuries Tc99m MDP. The route of agent administration: Intravenous. ADDITIONAL DRUGS AND DOSES: None. TECHNIQUE: Routine delayed images at 3 hours post radionuclide injection acquired of the bony skelet on including anterior and posterior whole-body projections and additional focused images as needed. LIMITATIONS: None. FINDINGS: BONES: Normal visualization without areas of photopenia or increased bony uptake of radiop harmaceutical. KIDNEYS: Symmetric excretion without obstruction. OTHER: No other significant finding. IMPRESSION: There is no evidence of metastatic disease to bone. COMMENT: Quality measure 147: Current bone scan is compared with any available plain radiographs, p rior bone scans, and CT/MRI. TECHNICAL DOCUMENTATION: JOB ID: [id number] 2010 [employer]- All Rights Reserved Reading location - IP/workstation name: [email or web address]
== END ==
LOC: RAD 09:00
PROVIDERS: ATTEND Internal Medicine
DX: C41.9 Malignant neoplasm of bone and articular cartilage, unspecified (principal)
CPT/HCPCS: 77075; 78306; A9503; Q9969